=== PATIENT | female | born 1975 | race Caucasian/White ===

== ENCOUNTER 2016-06-20 09:35 | Emergency (ER) | payer OTHER ==
[2016-06-20 09:51] VITALS: BP 107/55
== END 2016-06-20 10:52 | disposition left against medical advice (07) ==
LOC: ED 09:35
DX: R50.9 Fever, unspecified (principal)

== ENCOUNTER 2017-04-11 10:18 | Emergency (ER) | payer OTHER ==
[2017-04-11 11:11] VITALS: BP 103/62
[2017-04-11 11:18] LABS: Hematocrit 41 % (35-47); Hemoglobin 13.6 g/dl (12.0-16.0); Mean Corpuscular HGB Conc 34 g/dl (31-36); Mean Corpuscular Hemoglobin 31 pg (27-31); Mean Corpuscular Volume 91 fL (80-97); Mean Platelet Volume 7 um3 (7.4-10.4); Red Blood Count 4.46 10^6/ul (4.0-5.4); Red Cell Distribution Width 13 % (10.5-15); White Blood Count 7.5 10^3/ul (3.5-10.8)
[2017-04-11 11:54] LABS: ALT 13 U/L (7-52); AST 20 U/L (13-39); Albumin 4.8 g/dL (3.2-5.2); Alkaline Phosphatase 29 U/L (34-104); Anion Gap 8 mmol/L (2-11); BUN/Creatinine Ratio 20.7 (8-20); Blood Urea Nitrogen 18 mg/dL (6-24); CO2 Carbon Dioxide 25 mmol/L (22-32); Calcium 10.6 mg/dL (8.6-10.3); Chloride 105 mmol/L (101-111); EGFR African American 92.3 (>60); EGFR Non-African American 71.8 (>60); Globulin 3.4 g/dL (2-4); Glucose 107 mg/dL (70-100); Magnesium 2.1 mg/dL (1.9-2.7); Potassium 3.9 mmol/L (3.5-5.0); Sodium 138 mmol/L (133-145); Total Protein 8.2 g/dL (6.4-8.9)
--- NOTE | 2017-04-11 12:06 | RAD ---
Indication: Chest pain. Single frontal view of the chest performed at 1112 hours was reviewed. Comparison is made with previous exam dated December 08, 2009. No mediastinal shift is noted. Heart is of normal size and configuration. Lung benavidez appear clear. IMPRESSION: NO ACTIVE CARDIOPULMONARY DISEASE IS NOTED.
--- NOTE | 2017-04-12 15:57 | ED ---
Sherry Basilio Alfonso, scribed for Brigida Frazier MD on 04/11/17 at 1118 . Shortness of Breath - HPI Summary HPI Summary: This patient is a 41 year old F presenting to [facility] accompanied by with a chief complaint of SOB which began at 0900 today. The patient rates the pain 0/10 in severity. Symptoms aggravated by standing or sitting. Symptoms alleviated by spontaneous resolution. Patient reports racing palpitations ( began at 0930 today), generalized weakness, and bilateral SI joint pain (since one year ago for which she got an injection yesterday). Patient denies CP. She reports being on a cleanse, so I havent been eating much. - History of Current Complaint Chief Complaint: EDShortnessOfBreath Time Seen by Provider: 04/11/17 11:14 Hx Obtained From: Patient Onset/Duration: Sudden Onset, Lasting Hours, Resolved Timing: Constant Aggrevating Factors: Other - standing or sitting. Alleviating Factors: Spontaneous Resolution - Allergy/Home Medications Allergies/Adverse Reactions: Allergies Allergy/AdvReac Type Severity Reaction Status Date / Time Prednisone AdvReac Muscle Ache Verified 04/11/17 10:21 PMH/Surg Hx/FS Hx/Imm Hx Endocrine/Hematology History: Denies: Hx Diabetes, Hx Thyroid Disease Cardiovascular History: Denies: Hx Hypercholesterolemia, Hx Hypertension, Hx Pacemaker/ICD, Hx Peripheral Vascular Disease Musculoskeletal History: Denies: Hx Arthritis, Hx Osteoporosis Sensory History: Denies: Hx Cataracts, Hx Contacts or Glasses, Hx Glaucoma, Hx Hearing Aid Opthamlomology History: Denies: Hx Cataracts, Hx Contacts or Glasses, Hx Glaucoma Neurological History: Denies: Hx Headaches, Hx Seizures, Hx Transient Ischemic Attacks (TIA) Psychiatric History: Reports: Hx Panic Disorder Denies: Hx Anxiety, Hx Depression Infectious Disease History: No Infectious Disease History: Denies: Traveled Outside the [place] in Last 30 Days - Family History Known Family History: Positive: Cardiac Disease - Mother and father, Hypertension - Mother, Diabetes - Mother, Other - Prostate cancer father. Skin cancer father. - Social History Lives: With Family - Alcohol Use: Weekly Alcohol Amount: 3-5 DRINKS Substance Use Type: Reports: None Smoking Status (MU): Never Smoked Tobacco Review of Systems Positive: Palpitations. Negative: Chest Pain Positive: Shortness Of Breath Positive: Other - bilateral SI joint pain (since one year ago for which she got an injection yesterday). Neurological: Other - generalized weakness All Other Systems Reviewed And Are Negative: Yes Physical Exam - Summary Physical Exam Summary: General: Well appearing, no pain distress Skin: Warm, Skin Color Reflects Adequate Perfusion, Dry Eyes: EOMI, SARAH ENT: Pharynx normal, TMs normal Neck: Supple, nontender Respiratory: CTA, breath sounds present, no rhonchi, no wheezes, no rales Cardiovascular: RRR, no murmur, no rub, no gallop Abdomen: Soft, nontender, Non-distended, no guarding, no rebound Bowel: Present Musculoskeletal: LUÍS, No edema Neuro: Sensory/motor intact, A&Ox3, CN intact 2-12 Psych: Affect/mood appropriate Triage Information Reviewed: Yes Vital Signs On Initial Exam: Initial Vitals Temp Pulse Resp BP Pulse Ox 99.0 F 110 16 108/81 99 04/11/17 10:21 04/11/17 10:21 04/11/17 10:21 04/11/17 10:21 04/11/17 10:21 Vital Signs Reviewed: Yes - Kristopher Coma Scale Coma Scale Total: 15 Diagnostics - Vital Signs Vital Signs Temp Pulse Resp BP Pulse Ox 04/11/17 11:00 80 20 99 04/11/17 10:57 85 15 100 04/11/17 10:55 103/62 04/11/17 10:53 81 20 04/11/17 10:21 99.0 F 110 16 108/81 99 - Laboratory Result Diagrams: 04/11/17 11:04 04/11/17 11:04 Lab Statement: Any lab studies that have been ordered have been reviewed, and results considered in the medical decision making process. - Radiology CXR Radiology Interpretation Completed By: Radiologist - NO ACTIVE CARDIOPULMONARY DISEASE IS NOTED. ED physician has reviewed this radiology report and agrees. - EKG 1033 Cardiac Rate: NL - 81 BPM EKG Rhythm: Sinus Rhythm EKG Comparison: No Significant Change - 04/17/12 Course/Dx - Diagnoses Provider Diagnoses: Palpitations Discharge - Discharge Plan Condition: Stable Disposition: HOME Patient Education Materials: Palpitations (ED) Referrals: Kehinde Cloud MD [Primary Care Provider] - 3 Days Additional Instructions: RETURN TO THE EMERGENCY DEPARTMENT FOR CHANGING OR WORSENING SYMPTOMS. The documentation as recorded by the Sherry woods Alfonso accurately reflects the service I personally performed and the decisions made by me, Brigida Frazier MD.
== END 2017-04-11 12:25 | disposition home or self-care (01) ==
LOC: ED 10:18
DX: R00.2 Palpitations (principal); R53.1 Weakness; M53.3 Sacrococcygeal disorders, not elsewhere classified; Z32.02 Encounter for pregnancy test, result negative; F41.0 Panic disorder [episodic paroxysmal anxiety]; Z88.8 Allergy status to other drugs, medicaments and biological substances
CPT/HCPCS: 36415; 71010; 80053; 83605; 83735; 84484; 84702; 85025; 87040; 93005; 99282

== ENCOUNTER 2017-12-24 14:27 | Emergency (ER) | payer OTHER ==
--- OUTSIDE RECORDS SUMMARY | 2017-12-24 14:34 | XMS REPORT ---
:1975 External Reference #:[id number] Author Organization [facility] Address [address] [place] [address] Phone [phone] Care Team Providers Name Role Phone Kehinde Cloud M.D. Care Team Information [employer] Window Tinter Unavailable Payers Type Date Identification Numbers Payment Provider Subscriber Health Maintenance Effective: Policy Number: [facility] Sabas Preciado [facility] ([facility]) 02/16/2010 [id number] Expires: 06/17/2012 Group Number: [id number] [address] PayID: [id number] [place] [address] Medigap Part B Effective: 06/18/2012 Policy Number: [id number] [employer] Sabas Preciado [address] Group Number: [id number] [address] PayID: [id number] [place] [address] Problems Date Description Provider Status Onset: 12/10/2011 Headache Kehinde Cloud M.D. Active Onset: 12/10/2011 Pure hypercholesterolemia Kehinde Cloud M.D. Active Family History Date Family Member(s) Problem(s) Comments Onset: (age 74 Father CAD CABG x 3 Years) : (age Father due to Cancer, 74 Years) Prostate Father Hypercholesterolemia Father Hypertension Father Diabetes Father Cancer, Skin Mother Hypertension Siblings 1 First Brother Non Contributory First Brother Obesity Paternal Grandfather due to CAD () - in his 56's. Heavy smoker Paternal Grandfather Alcoholism Paternal Grandmother Arthritis Paternal Grandmother due to Cancer () - near age 90. perhaps colon. abdominal. Paternal Grandmother Cancer, Cervical Maternal Grandfather Alcoholism Maternal Grandmother due to Suspected HI () - in her 70's. Maternal Grandmother Arthritis Social History Type Date Description Comments Marital Status Lives With Spouse Sabas Diet Healthy, Well Balanced gets plenty of calcium. Mostly vegetarian but lots of fish. 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 Cardio. Currently Active Patient is currently sexually active STD's No STD History Allergies, Adverse Reactions, Alerts Date Description Reaction Status Severity Comments 08/21/2014 NKDA active 03/27/2003 NKDA inactive Medications Medication Date Status Form Strength Qnty SIG Indications Ordering Provider Escitalopram 08/16 Active Tablets 20mg 30tab 1 by mouth F41.9 Kehinde s every day Ronal Cloud Clonazepam 10/02 Active Tablets 0.5mg 30tab 1 four s times a day Ai, as needed M.DLexie anxiety Quasense Active Tablets 0.15-0.03 Take 1 Unknown /0000 mg Tablet By Mouth Daily. Skip Placebo Pills To Prevent Periods Doxycycline 12/02 Hx Tablets 100mg 42tab 1 by mouth cl s twice a day Ai, - x 21 days M.D. 12/09 Proctozone-HC 09/21 Hx Cream 2.5% 30gm apply to w hemorrhoids Delaney Tinajero, - 3 - 4 times [employer]-C 11/07 daily if needed Bupropion HCL ER 09/13 Hx Tablets ER 100mg 30tab take 1 F41.9 Kehinde (SR) 12HR s tablet by Ai, - mouth qAM M.D. 11/07 Diazepam 09/13 Hx Gel 10mg 60dos apply 5mg es by way of Ai, - vagina M.D. 09/20 twice a day as needed (mucolox in versabase gel) Diazepam 08/16 Hx Tablets 5mg 60tab 1 by mouth F41.9 Kehinde s every night Ai, - at bedtime M.D. 09/20 Diazepam 06/29 Hx Vaginal Gel 60Dos apply 5mg Kehinde Compound es by way of Ai, - vagina M.D. 09/17 twice a day as needed (mucolox in versabase gel) Nortriptyline 05/16 Hx Capsules 25mg Ai, - M.D. 08/16 Neurontin 05/02 Hx Capsules 300mg 90cap 1 by mouth M54.5 s every night Ai, - at bedtime, M.D. 09/12 increase to bid after 2 days, and may increase to tid in 3 days. Escitalopram 04/19 Hx Tablets 10mg 30tab 1 by mouth F41.9 s every day Ai, - M.D. 08/16 Duloxetine HCL 03/[address] 30mg 60cap take one F41. Part s capsule by Ai, - mouth every M.D. 04/18 day for week then increase to 2 po qd Prednisone 01/16 Hx Tablets 50mg Ai, - M.D. 02/13 Celexa 11/28 Hx Tablets 20mg 90tab 2 po qd F41.9 s Ai, - M.D. 04/19 Celexa 11/16 Hx Tablets 20mg 60tab Take 1 And F41.9 s 1/2 Tablet Ai, - To 2 M.D. 11/28 Tablets By Mouth Every Day as Directed Duloxetine HCL 10/[address] 30mg 60cap take one F41. Part s capsule by Ai, - mouth every M.D. 10/16 day for week then increase to 2 po qd Lidoderm 08/31 Hx Patches 5% 30uni apply 1 M54.5 ts patches to Ai, - affected M.D. 10/16 area for hours a day Neurontin 08/02 Hx Capsules 100mg 30cap 1 by mouth s three times Ai, - a day as M.D. 08/30 Cyclobenzaprine 05/16 Hx Tablets 5mg 30tab take 1 to 2 M54.9 s tablets by Cloud, - mouth up to M.D. 06/01 three times a day as needed for muscle spasm - may cause drowsiness Naproxen 05/16 Hx Tablets 250mg 30tab 1-2 q12hrs M54.9 s prn Ai, - M.D. 06/21 Benzonatate 04/17 Hx Capsules 100mg 45cap take 1 or 2 s capsules by Rashi, - mouth three [employer] 06/01 times a day as needed for coughing Indomethacin 03/28 Hx Capsules 25mg 30cap 1-2 by s mouth three Cloud, - times a M.D. 09/12 day, take with food Hydroxyzine HCL 02/14 Hx Tablets 10mg 45tab 1 -3 tablet s by mouth 4 Cloud, - times a day M.D. 03/27 as needed for anxiety Macrobid 07/22 Hx Capsules 100mg 30cap 1 po q12hrs s x 2 doses Ai, - after M.D. 12/29 intercourse Vesicare 07/08 Hx Tablets 10mg 30tab 1 po qd s Ai, - M.D. 12/29 Indomethacin 04/30 Hx Capsules 25mg Four Times Daily - 12/29 Naprosyn 02/08 Hx Tablets 500mg 60tab take one s tablet by Delaney Tinajero, - mouth twice [employer] 12/29 a day pain and inflamation Diazepam 08/21 Hx Tablets 2mg 30tab 1/2-2 by F41.9 s mouth every Cloud, - 6 hours as M.D. 12/29 needed Vitamin D3 08/09 Hx Capsules 1000Unit 1 by mouth every day P. - Blegen, 06/01 M.D. Vesicare 08/05 Hx Tablets 5mg 1 PO qd P. - Blegen, 02/08 M.D. Detrol LA 07/07 Hx Caps ER 4mg 7caps 1 po qd 24HR Ai, - M.D. 07/20 Macrobid 07/05 Hx Capsules 100mg 12cap 1 by mouth s twice a day Ai, - x 6 days M.D. 08/05 Cipro 07/04 Hx Tablets 250mg 6tabs one twice a day x 3 Cloud, - days M.D. 08/05 Cipro 06/28 Hx Tablets 500mg 10tab one by s mouth twice P. - a day for 5 Blegen, 07/08 days for M.D. uti Celexa 01/28 Hx Tablets 20mg 60tab 1.5-2 by F41.9 s mouth every Cloud, - day as M.D. 10/24 Cipro 01/14 Hx Tablets 250mg 10tab 1 pill by Lucius s mouth twice RLexie Tinajero, - a day for 5 [employer] 01/19 days urine infection Doxycycline 01/10 Hx Capsules 100mg 14cap 1 po bid Michelwnti Monohydrate s for 7 days Delaney Tinajero, - for bladder [employer] 01/14 infection Citalopram 06/25 Hx Tablets 20mg 30tab 1 po qd 300.00 Kehinde Hydrobromide s Ai, - M.D. 01/28 Excuse For Work 04/23 Hx 1ameena Putnam needs s to be out Ai, - of work M.D. 04/30 through 04/30/12 07/05 Hx Tablets 0.8mg 30tab 1 po qd s Ai, - M.D. 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 08/23 headache- may repeat after 2 hours Citalopram 10/04 Hx Tablets 20mg 30tab Take One 300.00 Hydrobromid s Tablet By Ai, - Mouth One M.D. 03/14 Time Clindamycin 02/25 Hx Gel 1% 30gm apply to affected Ai, - area bid M.D. 05/26 Azithromycin 11/17 Hx Tablets 250mg 6tabs 2 po qd day 786.2 1, then 1 Irene Cloud po qd days M.D. 02/15 2- Tylenol With 11/10 Hx Tablets 300-30mg 4tabs i to tabs 786.2 Nolvia Codeine # po qhs prn P. - cough Blegen, 03/14.D. Nasonex 11/10 Hx Suspension 50mcg/Act 1unit one spray 995.3 s each P. - nostril bid Blegen, 08/23 M.D. Celexa 07/14 Hx Tablets 20mg 30tab 1 po qd 300.00 s Irene Cloud M.DLexie 08/23 Ortho Evra 07/14 Hx Patches 150-20mcg 9unit Apply 1 Weekly /24HR s patch Irene Cloud topically M.D. 03/14 on the day every week for 3 weeks, off 1week then repeat Ortho Evra 07/14 Hx Patches 150-20mcg 1unit emergency Weekly /24HR s patch Irene Cloud M.DLexie 03/14 Diflucan 11/30 Hx Tablets 150mg 1tabs 1 po x 1 Tawanna Irene Garcia M.D., 12/02 R.DLexie Ocella 10/07 Hx Tablets 3-0.03mg 28tab Take 1 s Tablet Irene Cloud Every Day M.D. 08/23 Physical Therapy 08/27 Hx Evaluate and treat Irene Cloud M.DLexie 11/25 tendonitis Cele 28 10/02 Hx Tablets 3-0.03mg 30tab 1 PO qd s Irene Cloud.DLexie 03/14 Bactrim DS 12/11 Hx Tablets 160mg;800 10tab one po bid Carolina /2006 mg s for 5 days A. - Yevgeniy, 03/14 [facility].N.P.[facility] Cipro 06/08 Hx Tablets 250mg 6tabs One bid X 3 Days Irene Cloud M.D. 09/06 Penicillin VK 09/28 Hx Tablets 500mg 20tab One bid X10 462 s Days Irene Cloud M.D. 12/27 Excuse From Work 09/28 Hx [place] needs to be out Ai - of work M.DLexie 10/0309/29/04 Cele 28 Day 09/08 Hx Tablets 0.03mg;3 3Pack 1 qd mg s Irene Cloud M.D. 10/02 Penicillin VK 07/18 Hx Tablets 500mg 20tab one bid x10 s days Irene Cloud M.D. 09/08 Penicillin VK 05/26 Hx Tablets 500mg 20tab one po bid 462 Carolina s for 10 days ALexie Vuong, 07/07 [facility] Ortho Tri-Cyclen 03/16 Hx Pack(S) 1pack 1 qd Kehinde Irene Cloud M.D. 09/08 Cipro 10/16 Hx Tablets 250mg 14tab one bid x 7 s days Irene Cloud M.D. 11/15 Pyridium 10/16 Hx Tablets 100mg 20tab 1-2 tid prn s Irene Cloud M.D. 11/15 Flagyl 07/17 Hx Tablets 500mg 14tab one po bid s for 7 days Irene Cloud M.D. 05/26 Diflucan 04/27 Hx Tablets 150mg 1tabs 1 tablet once prn Luis Florence 06/03 Ronal Robitussin A-C 04/23 Hx Syrup 4Oz 1-2 TSP Q4H prn Irene Cloud M.D. 06/03 Keflex 03/27 Hx 500mg 14uni one po bid ts for 7 days Aurelio Vuong, 06/03 [facility] Clonazepam 00 Hx 0.5mg 60uni one gtab po Carolina ts bid prn Aurelio Vuong, 09/08 F.N.P.C. /2004 Celexa 00 Hx Tabs 40mg 30tab Take One 300.00 Kehinde /0000 s Tablet By Ai, - Mouth One M.D. 07/14 Time Daily /2009 Myrbetriq Hx Tablets ER 50mg Take 1 Unknown /0000 24HR Tablet By - Mouth Every Norethindrone Hx Tablets 5mg Take 1 Unknown Acetate /0000 Tablet By - Mouth Every Hydroxyzine HCL Hx Tablets 1 -3 tablet Unknown /0000 by mouth 4 - times a day 11/07 as needed for anxiety Medications Administered in Office Medication Date Status Form Strength Qnty SIG Indications Ordering Provider Injection, Administered Injection Kehinde Cloud Depo-Medrol 20 009 M.D. MG Immunizations CPT Code Status Date Vaccine Lot # [id number] Given 05/16/2017 Hepatitis A, Adult [id number] Given 04/19/2017 Influenza Virus Vaccine, Quadrivalent, 3 Yr > [id number] Quad, Preserv Free 15553 Given 03/28/2016 MMR (Measles,Mumps,Rubella) [id number] 59199 Given 03/28/2016 Influenza Virus Vaccine, Quadrivalent, 3 Yr > [id number] Quad, Preserv Free 10157 Given 03/28/2016 Hepatitis A, Adult [id number] 70040 Given 04/14/2015 Influenza Virus Vaccine, Quadrivalent, 3 Yr > [id number] Quad, Preserv Free 45948 Given 09/14/2011 Tdap (Adacel) [id number] Vital Signs Date Vital Result Comment 12/10/2017 Weight 139.00 lb Weight in kg's 63.050 BP Systolic 104 mmHg BP Diastolic 68 mmHg Heart Rate 82 /min Body Temperature 99.1 F 11/07/2017 Weight 135.00 lb Weight in kg's 61.236 BP Systolic 102 mmHg BP Diastolic 60 mmHg Heart Rate 72 /min Body Temperature 99.3 F Respiratory Rate 16 /min O2 % BldC Oximetry 98 % 10/16/2017 Weight 130.00 lb Weight in kg's 58.968 BP Systolic 102 mmHg BP Diastolic 60 mmHg Heart Rate 72 /min Body Temperature 99.5 F Respiratory Rate 16 /min 09/13/2017 Weight 129.00 lb Weight in kg's 58.514 BP Systolic 102 mmHg BP Diastolic 58 mmHg Heart Rate 80 /min Body Temperature 100.2 F Respiratory Rate 16 /min O2 % BldC Oximetry 98 % 08/16/2017 Weight 133.00 lb Weight in kg's 60.329 BP Systolic 92 mmHg BP Diastolic 60 mmHg Heart Rate 76 /min Body Temperature 99.4 F Respiratory Rate 16 /min 06/28/2017 Weight 135.00 lb Weight in kg's 61.236 BP Systolic 108 mmHg BP Diastolic 60 mmHg Heart Rate 70 /min Body Temperature 98.1 F Respiratory Rate 16 /min O2 % BldC Oximetry 98 % 05/16/2017 BP Systolic 100 mmHg BP Diastolic 60 mmHg Heart Rate 70 /min Body Temperature 97.3 F O2 % BldC Oximetry 98 % 04/19/2017 Weight 131.00 lb Weight in kg's 59.422 BP Systolic 100 mmHg BP Diastolic 62 mmHg Heart Rate 72 /min Body Temperature 98.6 F 03/30/2017 Weight 134.00 lb Weight in kg's 60.782 BP Systolic 110 mmHg BP Diastolic 75 mmHg Heart Rate 72 /min 02/13/2017 Weight 136.00 lb Weight in kg's 61.690 BP Systolic 94 mmHg BP Diastolic 60 mmHg Heart Rate 78 /min Body Temperature 99.3 F Respiratory Rate 16 /min O2 % BldC Oximetry 98 % 12/28/2016 Weight 135.00 lb Weight in kg's 61.236 BP Systolic 104 mmHg BP Diastolic 66 mmHg Heart Rate 68 /min Body Temperature 99.2 F Respiratory Rate 14 /min Height 63 inches 5'3" BMI (Body Mass Index) 23.9 kg/m2 11/28/2016 Weight 138.00 lb Weight in kg's 62.597 BP Systolic 110 mmHg BP Diastolic 60 mmHg Heart Rate 84 /min Body Temperature 99.5 F Respiratory Rate 16 /min 11/16/2016 Weight 137.00 lb Weight in kg's 62.143 BP Systolic 100 mmHg BP Diastolic 62 mmHg Heart Rate 72 /min Body Temperature 98.7 F Respiratory Rate 16 /min 10/24/2016 Weight 135.00 lb Weight in kg's 61.236 BP Systolic 106 mmHg BP Diastolic 62 mmHg Heart Rate 83 /min Body Temperature 98.7 F Respiratory Rate 14 /min O2 % BldC Oximetry 98 % 10/09/2016 Weight 139.00 lb Weight in kg's 63.050 BP Systolic 100 mmHg BP Diastolic 60 mmHg Heart Rate 84 /min 08/31/2016 Weight 134.00 lb Weight in kg's 60.782 BP Systolic 108 mmHg BP Diastolic 62 mmHg Heart Rate 96 /min 08/02/2016 Weight 134.00 lb Weight in kg's 60.782 BP Systolic 100 mmHg BP Diastolic 67 mmHg Heart Rate 80 /min 07/11/2016 Weight 137.00 lb Weight in kg's 62.143 BP Systolic 94 mmHg BP Diastolic 62 mmHg Heart Rate 88 /min Body Temperature 98.9 F O2 % BldC Oximetry 98 % 06/21/2016 Weight 139.00 lb Weight in kg's 63.050 BP Systolic 102 mmHg BP Diastolic 56 mmHg Heart Rate 75 /min Body Temperature 98.8 F Respiratory Rate 17 /min O2 % BldC Oximetry 99 % 06/01/2016 Weight 135.00 lb Weight in kg's 61.236 BP Systolic 98 mmHg BP Diastolic 60 mmHg Heart Rate 79 /min Body Temperature 97.9 F Respiratory Rate 16 /min O2 % BldC Oximetry 98 % 05/16/2016 Weight 137.00 lb Weight in kg's 62.143 BP Systolic 90 mmHg BP Diastolic 60 mmHg Heart Rate 68 /min Body Temperature 98.1 F Respiratory Rate 12 /min 05/08/2016 Weight 134.00 lb Weight in kg's 60.782 BP Systolic 98 mmHg BP Diastolic 60 mmHg Heart Rate 68 /min Body Temperature 99.0 F Respiratory Rate 12 /min 04/17/2016 Weight 136.00 lb Weight in kg's 61.690 BP Systolic 100 mmHg BP Diastolic 65 mmHg Heart Rate 72 /min Body Temperature 98.6 F O2 % BldC Oximetry 99 % 03/28/2016 Weight 135.00 lb Weight in kg's 61.236 BP Systolic 90 mmHg BP Diastolic 60 mmHg Heart Rate 68 /min Body Temperature 98.6 F Respiratory Rate 12 /min 02/03/2016 Weight 132.00 lb Weight in kg's 59.875 BP Systolic 90 mmHg BP Diastolic 58 mmHg Heart Rate 68 /min Body Temperature 98.2 F Respiratory Rate 16 /min 12/30/2015 Weight 129.00 lb Weight in kg's 58.514 BP Systolic 96 mmHg BP Diastolic 60 mmHg Heart Rate 76 /min Height 63.25 inches 5'3.25" BMI (Body Mass Index) 22.7 kg/m2 Last Menstrual Period [id number] 07/22/2015 Weight 128.00 lb Weight in kg's 58.061 BP Systolic 90 mmHg BP Diastolic 60 mmHg Heart Rate 60 /min 07/08/2015 Weight 129.00 lb Weight in kg's 58.514 BP Systolic 90 mmHg BP Diastolic 50 mmHg Heart Rate 76 /min 07/05/2015 Weight 123.00 lb Weight in kg's 55.793 BP Systolic 11 mmHg BP Diastolic 59 mmHg Heart Rate 80 /min 05/04/2015 Weight 125.00 lb Weight in kg's 56.700 BP Systolic 96 mmHg BP Diastolic 64 mmHg Heart Rate 72 /min 02/08/2015 Weight 123.00 lb Weight in kg's 55.793 BP Systolic 90 mmHg BP Diastolic 60 mmHg Heart Rate 56 /min 09/04/2014 Weight 120.00 lb Weight in kg's 54.432 BP Systolic 90 mmHg BP Diastolic 52 mmHg Heart Rate 68 /min 08/21/2014 Weight 117.00 lb Weight in kg's 53.071 BP Systolic 110 mmHg BP Diastolic 62 mmHg Heart Rate 80 /min 08/05/2014 Weight 119.00 lb Weight in kg's 53.978 BP Systolic 110 mmHg BP Diastolic 64 mmHg Heart Rate 88 /min Body Temperature 99.7 F 07/21/2014 Weight 126.00 lb Weight in kg's 57.154 BP Systolic 100 mmHg BP Diastolic 50 mmHg Heart Rate 72 /min 07/13/2014 Weight 123.00 lb Weight in kg's 55.793 BP Systolic 115 mmHg BP Diastolic 68 mmHg Heart Rate 80 /min Body Temperature 99.2 F 07/07/2014 Weight 123.00 lb Weight in kg's 55.793 BP Systolic 110 mmHg BP Diastolic 62 mmHg Heart Rate 92 /min Body Temperature 99.5 F 07/06/2014 Weight 125.00 lb Weight in kg's 56.700 BP Systolic 116 mmHg BP Diastolic 74 mmHg Heart Rate 76 /min Body Temperature 99.7 F 07/02/2014 Weight 128.00 lb Weight in kg's 58.061 BP Systolic 102 mmHg BP Diastolic 50 mmHg Heart Rate 76 /min 06/02/2014 Weight 127.00 lb Weight in kg's 57.607 BP Systolic 100 mmHg BP Diastolic 52 mmHg Heart Rate 80 /min 05/19/2014 Weight 128.00 lb Weight in kg's 58.061 BP Systolic 78 mmHg BP Diastolic 50 mmHg Heart Rate 80 /min Body Temperature 98.4 F 04/21/2014 Weight 126.00 lb Weight in kg's 57.154 BP Systolic 106 mmHg BP Diastolic 54 mmHg Heart Rate 76 /min 01/08/2014 Weight 123.00 lb Weight in kg's 55.793 BP Systolic 120 mmHg BP Diastolic 60 mmHg Heart Rate 76 /min Body Temperature 99.3 F Last Menstrual Period [id number] 10/23/2012 Weight 123.00 lb Weight in kg's 55.793 BP Systolic 84 mmHg BP Diastolic 54 mmHg Heart Rate 68 /min Height 64 inches 5'4" BMI (Body Mass Index) 21.1 kg/m2 08/27/2012 Weight 125.00 lb Weight in kg's 56.700 BP Systolic 108 mmHg BP Diastolic 60 mmHg Heart Rate 76 /min Body Temperature 99.1 F Height 64 inches 5'4" BMI (Body Mass Index) 21.5 kg/m2 07/18/2012 Weight 127.00 lb Weight in kg's 57.607 BP Systolic 99 mmHg BP Diastolic 58 mmHg Heart Rate 82 /min 06/25/2012 Weight 125.00 lb Weight in kg's 56.700 BP Systolic 120 mmHg BP Diastolic 72 mmHg Heart Rate 86 /min Body Temperature 98.7 F O2 % BldC Oximetry 98 % 04/30/2012 Weight 131.00 lb Weight in kg's 59.422 BP Systolic 94 mmHg BP Diastolic 58 mmHg Heart Rate 84 /min 04/23/2012 Weight 129.00 lb Weight in kg's 58.514 BP Systolic 100 mmHg BP Diastolic 70 mmHg Heart Rate 90 /min 01/30/2012 Weight 130.00 lb Weight in kg's 58.968 BP Systolic 120 mmHg BP Diastolic 62 mmHg Heart Rate 88 /min 12/12/2011 Weight 132.00 lb Weight in kg's 59.875 BP Systolic 100 mmHg BP Diastolic 62 mmHg Heart Rate 76 /min Body Temperature 99.0 F 09/14/2011 Weight 137.00 lb Weight in kg's 62.143 BP Systolic 100 mmHg BP Diastolic 64 mmHg Heart Rate 68 /min Body Temperature 98.9 F 07/05/2011 Weight 135.00 lb Weight in kg's 61.236 BP Systolic 100 mmHg BP Diastolic 70 mmHg Heart Rate 68 /min 03/15/2011 Weight 134.00 lb Weight in kg's 60.782 BP Systolic 90 mmHg BP Diastolic 50 mmHg Heart Rate 72 /min Body Temperature 98.7 F 02/25/2010 Weight 135.00 lb Weight in kg's 61.236 BP Systolic 110 mmHg BP Diastolic 70 mmHg Heart Rate 84 /min 01/28/2010 Weight 133.00 lb Weight in kg's 60.329 BP Systolic 100 mmHg BP Diastolic 60 mmHg Heart Rate 72 /min Body Temperature 99.5 F 11/17/2009 Weight 130.00 lb Weight in kg's 58.968 BP Systolic 98 mmHg BP Diastolic 70 mmHg Heart Rate 76 /min Body Temperature 99.1 F O2 % BldC Oximetry 98 % AT Room Air 11/10/2009 Weight 131.00 lb Weight in kg's 59.422 BP Systolic 94 mmHg BP Diastolic 68 mmHg Heart Rate 72 /min Body Temperature 98.9 F O2 % BldC Oximetry 99 % AT Room Air 07/14/2009 Weight 136.00 lb Weight in kg's 61.690 BP Systolic 118 mmHg BP Diastolic 64 mmHg 05/05/2009 Weight 136.00 lb Weight in kg's 61.690 BP Systolic 100 mmHg BP Diastolic 60 mmHg Heart Rate 80 /min 01/22/2009 Weight 136.00 lb Weight in kg's 61.690 BP Systolic 110 mmHg BP Diastolic 60 mmHg Heart Rate 76 /min 11/30/2008 Weight 135.00 lb Weight in kg's 61.236 BP Systolic 100 mmHg BP Diastolic 60 mmHg Heart Rate 64 /min Body Temperature 97.4 F 09/24/2008 Weight 134.00 lb Weight in kg's 60.782 BP Systolic 102 mmHg BP Diastolic 68 mmHg Body Temperature 98.8 F 10/03/2007 Weight 131.00 lb Weight in kg's 59.422 BP Systolic 100 mmHg BP Diastolic 60 mmHg Heart Rate 68 /min Height 63 inches 5'3" BMI (Body Mass Index) 23.2 kg/m2 07/16/2007 Weight 127.00 lb Weight in kg's 57.607 BP Systolic 90 mmHg BP Diastolic 56 mmHg Heart Rate 70 /min Height 63 inches 5'3" BMI (Body Mass Index) 22.5 kg/m2 Last Menstrual Period [id number] 03/28/2006 Weight 132.00 lb Weight in kg's 59.875 BP Systolic 100 mmHg BP Diastolic 52 mmHg Heart Rate 68 /min Height 63 inches 5'3" BMI (Body Mass Index) 23.4 kg/m2 Last Menstrual Period [id number] 12/11/2005 Weight 129.50 lb Weight in kg's 58.741 BP Systolic 120 mmHg BP Diastolic 70 mmHg Height 63 inches 5'3" BMI (Body Mass Index) 22.9 kg/m2 02/28/2005 Weight 135.00 lb Weight in kg's 61.236 BP Systolic 98 mmHg BP Diastolic 60 mmHg Body Temperature 97.5 F Height 63 inches 5'3" BMI (Body Mass Index) 23.9 kg/m2 02/14/2005 Weight 136.00 lb Weight in kg's 61.690 BP Systolic 98 mmHg BP Diastolic 60 mmHg Body Temperature 99.8 F Height 63 inches 5'3" BMI (Body Mass Index) 24.1 kg/m2 11/10/2004 Weight 140.00 lb Weight in kg's 63.504 BP Systolic 120 mmHg BP Diastolic 80 mmHg Heart Rate 80 /min Height 63 inches 5'3" BMI (Body Mass Index) 24.8 kg/m2 09/28/2004 Weight 138.00 lb Weight in kg's 62.597 BP Systolic 120 mmHg BP Diastolic 80 mmHg Body Temperature 98.8 F Height 63 inches 5'3" BMI (Body Mass Index) 24.4 kg/m2 09/08/2004 Weight 138.00 lb Weight in kg's 62.597 BP Systolic 130 mmHg BP Diastolic 60 mmHg Heart Rate 76 /min Respiratory Rate 18 /min Height 63 inches 5'3" BMI (Body Mass Index) 24.4 kg/m2 Last Menstrual Period [id number] 07/07/2004 Weight 137.00 lb Weight in kg's 62.143 BP Systolic 100 mmHg BP Diastolic 60 mmHg Body Temperature 98.7 F 05/26/2004 Weight 137.00 lb Weight in kg's 62.143 BP Systolic 116 mmHg BP Diastolic 68 mmHg Heart Rate 84 /min 04/06/2004 Weight 137.00 lb Weight in kg's 62.143 BP Systolic 110 mmHg BP Diastolic 60 mmHg 03/16/2004 Weight 138.00 lb Weight in kg's 62.597 BP Systolic 102 mmHg BP Diastolic 58 mmHg Heart Rate 81 /min 10/21/2003 Weight 130.00 lb Weight in kg's 58.968 BP Systolic 100 mmHg BP Diastolic 60 mmHg Body Temperature 97.5 F 07/23/2003 Weight 130.00 lb Weight in kg's 58.968 BP Systolic 92 mmHg BP Diastolic 54 mmHg 06/03/2003 Weight 132.00 lb Weight in kg's 59.875 BP Systolic 100 mmHg BP Diastolic 60 mmHg Body Temperature 99.4 F 04/23/2003 Weight 129.00 lb Weight in kg's 58.514 BP Systolic 98 mmHg BP Diastolic 62 mmHg Body Temperature 98.0 F 03/27/2003 Weight 126.00 lb Weight in kg's 57.154 BP Systolic 90 mmHg BP Diastolic 60 mmHg Heart Rate 58 /min Body Temperature 97.0 F Respiratory Rate 16 /min Height 63.50 inches BMI (Body Mass Index) 22.0 kg/m2 Results Test Date Test Result H/L Range Note Laboratory test finding 12/10/2017 Ferritin 7.3 ng/mL Low 11-307 1 CBC Auto Diff 12/10/2017 White Blood Count 5.5 10^3/uL 3.5-10.8 Red Blood Count 4.25 10^6/uL 4.00-5.40 Hemoglobin 13.5 g/dL 12.0-16.0 Hematocrit 39 % 35-47 Mean Corpuscular Volume 91 fL 80-97 Mean Corpuscular Hemoglobin 32 pg High 27-31 Mean Corpuscular HGB Conc 35 g/dL 31-36 Red Cell Distribution Width 15 % 10.5-15 Platelet Count 315 10^3/uL 150-450 Mean Platelet Volume 6.8 um3 Low 7.4-10.4 Abs Neutrophils 3.0 10^3/uL 1.5-7.7 Abs Lymphocytes 1.5 10^3/uL 1.0-4.8 Abs Monocytes 0.5 10^3/uL 0-0.8 Abs Eosinophils 0.5 10^3/uL 0-0.6 Abs Basophils 0.1 10^3/uL 0-0.2 Abs Nucleated RBC 0 10^3/uL Granulocyte % 54.7 % 38-83 Lymphocyte % 26.6 % 25-47 Monocyte % 8.5 % High 0-7 Eosinophil % 9.1 % High 0-6 Basophil % 1.1 % 0-2 Nucleated Red Blood Cells % 0 Comp Metabolic Panel 12/10/2017 Sodium 139 mmol/L 135-145 Potassium 4.4 mmol/L 3.5-5.0 Chloride 103 mmol/L 101-111 Co2 Carbon Dioxide 29 mmol/L 22-32 Anion Gap 7 mmol/L 2-11 Glucose 91 mg/dL 70-100 Blood Urea Nitrogen 18 mg/dL 6-24 Creatinine 0.79 mg/dL 0.51-0.95 BUN/Creatinine Ratio 22.8 High 8-20 Calcium 9.5 mg/dL 8.6-10.3 Total Protein 7.3 g/dL 6.4-8.9 Albumin 4.1 g/dL 3.2-5.2 Globulin 3.2 g/dL 2-4 Albumin/Globulin Ratio 1.3 1-3 Total Bilirubin 0.20 mg/dL 0.2-1.0 Alkaline Phosphatase 20 U/L Low 34-104 Alt 17 U/L 7-52 Ast 19 U/L 13-39 Egfr Non- 79.8 >60 Egfr 96.6 >60 2 Laboratory test finding 12/10/2017 TSH (Thyroid Stim Horm) 3.35 mcIU/mL 0.34-5.60 3 Vitamin B12 246 pg/mL 180-914 4 Vitamin D Total 25(Oh) 35.7 ng/mL 20-50 5 Magnesium 2.1 mg/dL 1.9-2.7 6 Urine DIP 06/28/2017 Leukocytes neg Neg Urine Nitrites neg Neg Urobilinogen norm Norm Total Protein, Urine neg Neg Urine pH 8 High 5-6 Urine Blood neg Neg Specific Martin 1.015 1.01-1.02 Urine Ketones neg Neg Urine Bilirubin neg Neg Urine Glucose norm Norm Laboratory test finding 04/11/2017 Blood Culture SEE RESULT BELOW 7 Laboratory test finding 02/13/2017 TSH (Thyroid Stim 1.57 mcIU/mL 0.34- 5.60 8 Horm) Creatine Kinase(CK) 67 U/L 10-223 9 Erythrocyte Sed Rate 21 mm/Hr High 0-14 10 C Reactive Protein 6.21 mg/L High < 5.00 11 CBC Auto Diff 02/13/2017 White Blood Count 5.9 10^3/uL 3.5-10.8 Red Blood Count 3.88 10^6/uL Low 4.0-5.4 Hemoglobin 12.1 g/dL 12.0-16.0 Hematocrit 36 % 35-47 Mean Corpuscular Volume 93 fL 80-97 Mean Corpuscular Hemoglobin 31 pg 27-31 Mean Corpuscular HGB Conc 33 g/dL 31-36 Red Cell Distribution Width 13 % 10.5-15 Platelet Count 274 10^3/uL 150-450 Mean Platelet Volume 7 um3 Low 7.4-10.4 Abs Neutrophils 3.7 10^3/uL 1.5-7.7 Abs Lymphocytes 1.4 10^3/uL 1.0-4.8 Abs Monocytes 0.4 10^3/uL 0-0.8 Abs Eosinophils 0.3 10^3/uL 0-0.6 Abs Basophils 0.1 10^3/uL 0-0.2 Abs Nucleated RBC 0.01 10^3/uL Granulocyte % 62.9 % 38-83 Lymphocyte % 23.5 % Low 25-47 Monocyte % 7.5 % 1-9 Eosinophil % 5.0 % 0-6 Basophil % 1.1 % 0-2 Nucleated Red Blood Cells % 0.1 Laboratory test finding 07/28/2016 Urine Culture SEE RESULT BELOW 12 Basic Metabolic Panel 07/11/2016 Sodium 139 mmol/L 133-145 Potassium 4.3 mmol/L 3.5-5.0 Chloride 104 mmol/L 101-111 Co2 Carbon Dioxide 31 mmol/L 22-32 Anion Gap 4 mmol/L 2-11 Glucose 95 mg/dL 70-100 Blood Urea Nitrogen 20 mg/dL 6-24 Creatinine 0.79 mg/dL 0.51-0.95 BUN/Creatinine Ratio 25.3 High 8-20 Calcium 9.7 mg/dL 8.6-10.3 Egfr Non- 80.2 >60 Egfr 103.1 >60 13 Laboratory test finding 07/11/2016 Lyme Disease Serology Negative Negative 14 Erythrocyte Sed Rate 16 mm/Hr High 0-14 15 C Reactive Protein 1.61 mg/L < 5.00 16 Rheumatoid Factor <15 IU/mL <15 17 Laboratory test finding 02/20/2016 HCG < 0.60 mIU/mL 18, 19 Lipid Profile (Trig/Chol/HDL) 01/03/2016 Triglycerides 135 mg/dL 20, 21 Cholesterol 185 mg/dL 20, 22 HDL Cholesterol 58.6 mg/dL 20, 23 LDL Cholesterol 99 mg/dL 20, 24 Laboratory test finding 07/05/2015 Cytology SEE RESULT BELOW 25 HPV Rna Ww/Reflex Genotype Negative Negative 26 Urine Culture And 08/21/2014 Urine Culture (SEE NOTE) 27 Sensitivities Urine DIP 08/21/2014 Specific Martin 1.020 1.01-1.02 Urine pH 5 5-6 Leukocytes TRACE Neg Urine Nitrites NEG Neg Total Protein, Urine NEG Neg Urine Glucose NORM Norm Urine Ketones ++ Neg Urobilinogen NORM Norm Urine Bilirubin + Neg Urine Blood TRACE Neg CBC No Diff 08/05/2014 White Blood Count 6.3 10^3/uL 4.8-10.8 Red Blood Count 4.08 10^6/uL 4.0-5.4 Hemoglobin 13.0 g/dL 12.0-16.0 Hematocrit 38 % 35-47 Mean Corpuscular Volume 94 fL 80-97 Mean Corpuscular Hemoglobin 32 pg High 27-31 Mean Corpuscular HGB Conc 34 g/dL 31-36 Red Cell Distribution Width 12 % 10.5-15 Platelet Count 271 10^3/uL 150-450 Mean Platelet Volume 8 um3 7.4-10.4 Comp Metabolic Panel 08/05/2014 Sodium 138 mmol/L 133-145 Potassium 3.9 mmol/L 3.5-5.0 Chloride 104 mmol/L 101-111 Co2 Carbon Dioxide 26 mmol/L 22-32 Anion Gap 8 mmol/L 2-11 Glucose 101 mg/dL High 70-100 Blood Urea Nitrogen 14 mg/dL 6-24 Creatinine 0.77 mg/dL 0.51-0.95 BUN/Creatinine Ratio 18.2 8-20 Calcium 9.6 mg/dL 8.6-10.3 Total Protein 7.1 g/dL 6.4-8.9 Albumin 4.4 g/dL 3.2-5.2 Globulin 2.7 g/dL 2-4 Albumin/Globulin Ratio 1.6 1-3 Total Bilirubin 0.40 mg/dL 0.2-1.0 Alkaline Phosphatase 22 U/L Low 34-104 Alt 11 U/L 7-52 Ast 15 U/L 13-39 Egfr Non- 83.5 >60 Egfr 107.3 >60 28 Laboratory test finding 08/05/2014 TSH (Thyroid Stimulating 1.92 IU/mL 0.34-5.60 Horm) Free T4 1.22 ng/mL High 0.61-1.12 Vitamin B12 532 pg/mL 180-914 29 Vitamin D, 25 Hydroxy 08/05/2014 25-Hydroxy Vitamin D2 <4.0 ng/mL 25-Hydroxy Vitamin D3 31 ng/mL 25-Hydroxy Vitamin D Total 31 ng/mL 30 Urine Culture And 07/13/2014 Urine Culture (SEE NOTE) 31 Sensitivities Urine DIP 07/13/2014 Specific Martin 1.025 High 1.01-1.02 Urine pH 5 5-6 Leukocytes NEG Neg Urine Nitrites POS Neg Total Protein, Urine NEG Neg Urine Glucose NEG Norm Urine Ketones + Neg Urobilinogen NEG Norm Urine Bilirubin NEG Neg Urine Blood TRACE (MENSES) Neg Urine DIP 07/06/2014 Specific Martin 1.000 Low 1.01-1.02 Urine pH 5 5-6 Leukocytes TRACE Neg Urine Nitrites NEG Neg Total Protein, Urine NEG Neg Urine Glucose NORM Norm Urine Ketones NEG Neg Urobilinogen NORM Norm Urine Bilirubin NEG Neg Urine Blood NEG Neg Urine Culture And 07/05/2014 Urine Culture (SEE NOTE) 32 Sensitivities Laboratory test finding 07/02/2014 Gardnerella/Yeast: (SEE NOTE) 33 Vaginal Dna Urine Culture And 07/02/2014 Urine Culture (SEE NOTE) 34 Sensitivities Urine DIP 07/02/2014 Specific Martin 1.020 1.01-1.02 Urine pH 5 5-6 Leukocytes NEG Neg Urine Nitrites NEG Neg Total Protein, Urine NEG Neg Urine Glucose NORM Norm Urine Ketones NEG Neg Urobilinogen NORM Norm Urine Bilirubin NEG Neg Urine Blood NEG Neg Urine DIP 06/02/2014 Specific Martin 1.015 1.01-1.02 Urine pH 7 High 5-6 Leukocytes TRACE Neg Urine Nitrites NEG Neg Total Protein, Urine NEG Neg Urine Glucose NORM Norm Urine Ketones NEG Neg Urobilinogen NORM Norm Urine Bilirubin NEG Neg Urine Blood NEG Neg Urine Culture And 01/08/2014 Urine Culture (SEE NOTE) 35 Sensitivities Urine DIP 01/08/2014 Specific Martin 1.015 1.01-1.02 Urine pH 6 5-6 Leukocytes + Neg Urine Nitrites NEG Neg Total Protein, Urine NEG Neg Urine Glucose NORM Norm Urine Ketones NEG Neg Urobilinogen NORM Norm Urine Bilirubin + Neg Urine Blood 250 MENSES High Neg Laboratory test finding 09/16/2013 Beta HCG Quantitative 8.19 IU/mL High 0.0-5.0 36 Urine DIP 10/23/2012 Leukocytes NEG Neg Urine Nitrites NEG Neg Urine pH 5 5-6 Total Protein, Urine NEG Neg Urine Glucose NORM Norm Urine Ketones NEG Neg Urobilinogen 1 High Norm Urine Bilirubin NEG Neg Urine Blood NEG Neg Specific Martin 1.03 High 1.01-1.02 Laboratory test finding 08/21/2012 Glucose 77 mg/dL 70-100 37 Lipid Profile (Trig/Chol/HDL) 08/21/2012 Triglycerides 82 mg/dL 40-200 Cholesterol 165 mg/dL Less than 200 HDL Cholesterol 55 mg/dL 40-60 38 Cholesterol/HDL Ratio 3.0 Average 1-4.44 LDL Cholesterol 93.6 mg/dL Less Than 100 39 CBC Auto Diff 04/17/2012 White Blood Count 7.4 10^3/uL 4.8-10.8 Red Blood Count 4.13 10^6/uL 4.0-5.4 Hemoglobin 13.1 g/dL 12.0-16.0 Hematocrit 39 % 35-47 Mean Corpuscular Volume 94 fL 80-97 Mean Corpuscular Hemoglobin 32 pg High 27-31 Mean Corpuscular HGB Conc 34 g/dL 31-36 Red Cell Distribution Width 12 % 10.5-15 Platelet Count 308 10^3/uL 150-450 Mean Platelet Volume 7 um3 Low 7.4-10.4 Abs Neutrophils 6.7 10^3/uL 1.5-7.7 Abs Lymphocytes 0.5 10^3/uL Low 1.0-4.8 Abs Monocytes 0.2 10^3/uL 0-0.8 Abs Eosinophils 0 10^3/uL 0-0.6 Abs Basophils 0 10^3/uL 0-0.2 Abs Nucleated RBC 0 10^3/uL Granulocyte % 91.2 % High 38-83 Lymphocyte % 6.4 % Low 25-47 Monocyte % 2.1 % 1-9 Eosinophil % 0.1 % 0-6 Basophil % 0.2 % 0-2 Nucleated Red Blood Cells % 0 Comp Metabolic Panel 04/17/2012 Sodium 138 mmol/L 133-145 Potassium 3.6 mmol/L 3.5-5.0 Chloride 107 mmol/L 101-111 Co2 Carbon Dioxide 21.0 mmol/L Low 22-32 Anion Gap 10.0 mmol/L 2-11 Glucose 137 mg/dL High 70-100 Blood Urea Nitrogen 6 mg/dL 6-24 Creatinine 0.70 mg/dL 0.50-1.40 BUN/Creatinine Ratio 8.6 8-20 Calcium 10.0 mg/dL High 8.1-9.9 Total Protein 7.1 GM/DL 6.2-8.1 Albumin 3.8 GM/DL 3.6-5.4 Globulin 3.3 GM/DL 2-4 Albumin/Globulin Ratio 1.2 1-3 Total Bilirubin 0.7 mg/dL 0.1-1.0 40 Alkaline Phosphatase 34 U/L 30-110 Alt 38 U/L 14-54 Ast 42 U/L 12-42 Egfr Non- 94.7 >60 Egfr 121.8 >60 41 Vaginal Culture 12/12/2011 Vaginal Culture Normal vaginal f <SEE NOTE> 42 .Gram Stain Additional MOD. EPI, NO WBC <SEE NOTE> 43 Laboratory test finding 12/12/2011 Thin Prep W/HPV(Lsil/FARSHAD/Asc) SEE NOTE 44 Urine DIP 12/12/2011 Leukocytes trace Neg Urine Nitrites neg Neg Urine pH 6 5-6 Total Protein, Urine trace Neg Urine Glucose norm Norm Urine Ketones neg Neg Urobilinogen norm Norm Urine Bilirubin neg Neg Urine Blood neg Neg Specific Martin na Low 1.01-1.02 CBC With Manual Diff 04/26/2011 White Blood Count 4.4 CUMM Low 4.8-10.8 Red Cell Count 3.92 CUMM Low 4.2-5.4 Hemoglobin 12.6 g/dL 12.0-16.0 Hematocrit 36 % 35-47 Mean Corpuscular Volume 92 um3 79-97 Mean Corpuscular Hemoglob 32 pg High 27-31 Mean Corpuscular HGB Cone 35 g/dL 32-36 Redcell Distribution WDTH 12 % 10.5-15 Platelet Count 261 CUMM 150-450 Mean Platelet Volume 6.8 um3 Low 7.4-10.4 Polysegmented Neutrophil 50 % 38-83 Band Neutrophil 2 % 0-8 Lymphocyte 38 % 25-47 Monocyte 6 % 0-13 Eosinophil 3 % 0-6 Atypical Lymph 1 % 0-6 Absolute Neutrophil Count 2.2 RBC Morphology NORMAL Comp Metabolic Panel 04/26/2011 Sodium 137 mmol/L 135-145 Potassium 4.6 mmol/L 3.5-5.0 Chloride 102 mmol/L 101-111 Co2 (Carbon Dioxide) 30.0 mmol/L 22-32 Anion Gap 5.0 mmol/L 2-11 45 Glucose 90 mg/dL 70-100 BUN 11 mg/dL 6-24 Creatinine 0.7 mg/dL 0.50-1.40 One Over Creatinine 1.42 BUN/Creatinine Ratio 15.7 8-20 Calcium 9.7 mg/dL 8.1-9.9 Total Protein 6.9 GM/DL 6.2-8.1 Albumin 4.0 GM/DL 3.6-5.4 Globulin 2.9 GM/DL 2-4 Albumin/Globulin Ratio 1.4 1-3 Bilirubin Total 0.6 mg/dL 0.4-1.5 46 Alkaline Phosphatase 25 U/L Low 30-110 Alt (SGPT) 23 U/L 14-54 Ast (Sgot) 25 U/L 12-42 eGFR Non- 95.2 > 60 eGFR 122.5 > 60 47 Laboratory test finding 04/26/2011 Erythrocyte Sed Rate 15 MM/HR 0-15 Urine DIP 11/30/2008 Leukocytes NEG Neg Urine Nitrites NEG Neg Urine pH 5 5-6 Total Protein, Urine NGE Neg Urine Glucose NORM Norm Urine Ketones NEG Neg Urobilinogen NORM Norm Urine Bilirubin NEG Neg Urine Blood TRACE Neg Specific Martin NA Low 1.01-1.02 Laboratory test finding 11/30/2008 HCG DIP Test NEG Neg Lipid Profile (Trig/Chol/HDL) 11/24/2008 Triglyceride 169 mg/dL 40-200 Cholesterol 231 mg/dL High Less Than 200 48 High Density Lipoprotein 69 mg/dL High 40-60 49 Cholesterol/HDL Ratio 3.35 AVERAGE 1-4.44 Low Density Lipoprotein 128 mg/dL High Less Than 100 50 Laboratory test 07/16/2007 Thin Prep W/HPV(Lsil/FARSHAD/Asc) SEE NOTE 51, 52 finding Chlamydia/GC 07/16/2007 Chlamydia Amplified Probe NEGATIVE 51 Amp(Centrex) GC Amplified Probe NEGATIVE 51 Vaginitis Dna Probe Screen 07/16/2007 Screen Trichomonas Vaginalis NEGATIVE 51 Dna Screen Gardnerella Vaginalis Dna NEGATIVE 51 Screen Tish Species Dna NEGATIVE 51 Comprehensive Metabolic 07/16/2007 Glucose 74 mg/dL 70-100 53 BUN 20 mg/dL High 4-18 53 Creatinine, Serum 0.9 mg/dL 0.5-1.2 53 Sodium 141 mmol/L 136-146 53 Potassium 4.2 mmol/L 3.5-5.3 53 Chloride 105 mmol/L 98-110 53 Carbon Dioxide 22 mmol/L 20-32 53 Albumin 4.1 g/dL 3.5-4.7 53 Protein, Total 7.0 g/dL 6.4-8.2 53 Calcium 9.3 mg/dL 8.4-10.4 53 Alkaline Phosphatase 28 U/L 10-118 53 Sgot (Ast) 20 U/L 3-40 53 SGPT (Alt) 12 U/L 7-50 53 Bilirubin, Total 0.40 mg/dL 0.30-1.20 53 Lipid Profile 07/16/2007 Cholesterol, Total 222 mg/dL High 120-200 53, 54 HDL Cholesterol 76 mg/dL High 40-60 53 LDL Cholesterol, Calc. 107 mg/dL 53, 55 Triglycerides 195 mg/dL 53, 56 LDL/HDL Cholesterol 1.4 53, 57 Chol/HDL Cholesterol 2.9 53, 58 Laboratory test finding 07/16/2007 TSH (Thyrotropin) 1.980 uIU/ml 0.350- 5.500 53 RPR NON-REACTIVE Non-Reactive 53 Anti Viral AB Screen 07/16/2007 HIV 1/O/2 Abs-Index Value <1.00 <1.00 53 , 59 HIV 1/O/2 Abs, Qual Non Reactive 53, 60 Laboratory test finding 07/16/2007 GFR (Calculated) >60 53, 61 Urine DIP 03/28/2006 Leukocytes neg Neg Urine Nitrites neg Neg Urine pH 5 5-6 Total Protein, Urine neg Neg Urine Glucose norm Norm Urine Ketones nge Neg Urobilinogen norm Norm Urine Bilirubin neg Neg Urine Blood neg Neg Specific Martin na Low 1.01-1.02 Laboratory test finding 03/28/2006 Cytology <SEE NOTE> 62 Urinalysis 02/19/2006 Ua Color YELLOW Ictotest-Urine NEGATIVE (NEG) Appearance-Urine CLEAR Blood-Urine 1+ Negative Esterase-Urine TRACE Negative Glucose-Urine NEGATIVE Negative Ketones-Urine NEGATIVE Negative Nitrite POSITIVE Negative PH-Urine 7.0 5-9 Protein-Urine 1+ Negative [id number] NEGATIVE Negative Urinalysis W/Microscopic 02/19/2006 Ua Color YELLOW Ictotest-Urine NEGATIVE (NEG) Appearance-Urine CLEAR Bacteria-Urine 1+ Blood-Urine 1+ Negative Epith Cells-Ur MODERATE Esterase-Urine TRACE Negative Glucose-Urine NEGATIVE Negative Ketones-Urine NEGATIVE Negative Mucus Urine MODERATE Nitrite POSITIVE Negative PH-Urine 7.0 5-9 Protein-Urine 1+ Negative RBC-Urine 0-2 0-2 [id number] NEGATIVE Negative Specific Martin-Ur 1.018 1.010-1.030 WBC-Urine 10-15 0-5 Urine Culture And 02/19/2006 Urine Culture Sensitivi NG 63 Sensitivites Laboratory test finding 02/14/2005 Erythrocyte Sed Rate 37 MM/HR High 0- 15 CBC With Manual Diff 02/14/2005 RBC Morphology NORMAL White Blood Count 6.7 CUMM 4.8-10.8 Hematocrit 38 % 35-47 Hemoglobin 12.8 g/dL 12.0-16.0 Mean Corpuscular HGB Cone 34 g/dL 32-36 Mean Corpuscular Hemoglob 31 pg 27-31 Mean Corpuscular Volume 92 um3 79-97 Mean Platelet Volume 7.0 um3 Low 7.4-10.4 Platelet Count 326 CUMM 150-450 Polysegmented Neutrophil 61 % 38-83 Red Cell Count 4.14 CUMM Low 4.2-5.4 Redcell Distribution WDTH 12 % 10.5-15 Atypical Lymph 2 % 0-6 Eosenophil 11 % High 0-6 Lymphocyte 17 % 5-47 Monocyte 9 % 0-13 Laboratory test finding 02/14/2005 C Reactive Protien High 7.4 mg/L < 7.48 64 Sensit Parvovirus B19 Igg & Igm 02/14/2005 Parvovirus B19 Igg < 0.9 INDEX < 0.9 Antibodies Parvovirus B19 Igm Antibodies < 0.9 INDEX < 0.9 65 Laboratory test finding 11/10/2004 Thin Layer Pap REC'D-SEE IMAGE W/Reflex To HPV For ASCUS Laboratory test finding 09/28/2004 Strep Screen NEG Neg Lipid Profile 09/08/2004 Cholesterol/HDL Ratio 3.30 AVERAGE 1-4.44 (Trig/Chol/HDL) Cholesterol 218 mg/dL High Less Than 200 66 Triglyceride 143 mg/dL 40-200 High Density Lipoprotein 66 mg/dL High 40-60 67 Low Density Lipoprotein 123 mg/dL High Less Than 100 68 Throat Culture Full 05/26/2004 Throat Culture Full MODERATE [BETA S 69 <SEE NOTE> Chlamydia + GC Group 10/21/2003 Chlamydia By Dna NEGATIVE Negative Probe GC By Dna Probe NEGATIVE Negative Laboratory test finding 10/21/2003 Thin Layer Pap W/ Reflx REC'D-SEE IMAGE To HPV Urine DIP 10/21/2003 Leukocytes NEG Neg Urine Nitrites NEG Neg Urine pH 5 5-6 Total Protein, Urine NEG Neg Urine Glucose NORM Norm Urine Ketones NEG Neg Urobolinogen NORM Norm Urine Bilirubin NEG Neg Urine Blood TRACE Neg Urine DIP 07/16/2003 Leukocytes NEG Neg Urine Nitrites NEG Neg Urine pH 5 5-6 Total Protein, Urine NEG Neg Urine Glucose NORM Norm Urine Ketones NEG Neg Urobolinogen NORM Norm Urine Bilirubin NEG Neg Urine Blood MENSES Neg Vaginitis Dna Probe Screen 07/16/2003 Screen Trichomonas Vaginalis Dna FINAL 70 Screen Tish Species Dna FINAL 71 Screen Gardnerella Vaginalis Dna FINAL 72 Laboratory test finding 03/27/2003 Strep Screen NEG Neg 1 [id number] 2 Because ethnic data is not always readily available, this report includes an eGFR for both -Americans and non- Americans. The National Kidney Disease Education Program (NKDEP) does not endorse the use of the MDRD equation for patients that are not between the ages of 18 and 70, are , have extremes of body size, muscle mass, or nutritional status, or are non- or non-. According to the National Kidney Foundation, irrespective of diagnosis, the stage of the disease is based on the level of kidney function: Stage Description GFR(mL/min/1.73 m(2)) 1 Kidney damage with normal or decreased GFR 90 2 Kidney damage with mild decrease in GFR 60-89 3 Moderate decrease in GFR 30-59 4 Severe decrease in GFR 15-29 5 Kidney failure <15 (or dialysis) 3 [id number] 4 Normal Range 180 to 914 Indeterminate Range 145 to 180 Deficient Range <145 5 [id number] 7 SEE RESULT BELOW Name: CARY PRECIADO : [address]: Brigida Frazier MD Acct: [id number] Unit: [id number] AGE: 41 Location: ED Re04/11/17 SEX: F Status: DEP ER SPEC: [id number] YUNG: 04/11/17 [facility] DR: Brigida Frazier MD REQ: [id number] RECD: 04/11/17 STATUS: KAMI MONZON DR: Kehinde Cloud MD _ SOURCE: BLOOD,VENO SPDES: ORDERED: Blood Cult Procedure Result Reported Site Aerobic Culture Bottle Final 04/16/171127 ML No Growth Day 5 Anaerobic Culture Bottle Final 04/16/171127 ML No Growth Day 5 * ML - MAIN LAB ([facility]) . END OF REPORT * ML=Testing performed at Main Lab DEPARTMENT OF PATHOLOGY, [address] [place] [address] Tommy Sewell M.D. Director [facility] # [id number] 9 [id number] 10 [id number] 11 Acute inflammation: >10.00 12 SEE RESULT BELOW Name: PRECIADO,CARY Liliane : [address]: Daniel Reilly MD Acct: [id number] Unit: [id number] AGE: 41 Location: LAB Re07/28/16 SEX: F Status: REG REF SPEC: [id number] YUNG: 07/28/16 [facility] [address]: Daniel Reilly MD REQ: [id number] RECD: 07/28/16 STATUS: KAMI MONZON DR: Kehinde Cloud MD _ SOURCE: URINE SPDESC: ORDERED: Urine Culture QUERIES: Urine Source: Clean Catch Procedure Result Reported Site Urine Culture Final 07/29/16- 1231 ML No Growth (<1,000 CFU/mL) * ML - MAIN LAB ([facility]) . END OF REPORT * ML=Testing performed at Main Lab DEPARTMENT OF PATHOLOGY, [address] [place] [address] Tommy Sewell M.D. Director [facility] # [id number] 13 Because ethnic data is not always readily available, this report includes an eGFR for both -Americans and non- Americans. The National Kidney Disease Education Program (NKDEP) does not endorse the use of the MDRD equation for patients that are not between the ages of 18 and 70, are , have extremes of body size, muscle mass, or nutritional status, or are non- or non-. According to the National Kidney Foundation, irrespective of diagnosis, the stage of the disease is based on the level of kidney function: Stage Description GFR(mL/min/1.73 m(2)) 1 Kidney damage with normal or decreased GFR 90 2 Kidney damage with mild decrease in GFR 60-89 3 Moderate decrease in GFR 30-59 4 Severe decrease in GFR 15-29 5 Kidney failure <15 (or dialysis) 14 Serologic response to B. burgdorferi infection is not detected, but cannot rule out early infection during which low or undetectable antibody levels to B. burgdorferi may be present. If clinically indicated, a new serum specimen should be submitted in 7-14 days. Test Performed by: [address] [address] Biomedical Equipment Support Specialist: Madhu Mims II, M.D., Ph.D. 15 [id number] 16 Acute inflammation: >10.00 17 Test Performed by: [place] [address] Biomedical Equipment Support Specialist: Madhu Mims II, M.D., Ph.D. 18 PLEASE CALL RESULTS TO OFFICE 19 <5.0 Negative 5.0 - 25.0 Indeterminate (Repeat testing recommended after 72 hours) >25.0 Positive Perimenopausal women can display HCG levels of up to 20 mIU/mL 20 FASTING 21 Desirable <150 Borderline high 150-199 High 200-499 Very High >500 22 Desirable <200 Borderline high 200-239 High >239 23 Low <40 Desirable: 40-60 High: >60 24 Desirable: <100 mg/dL Near Optimal: 100-129 mg/dL Borderline High: 130-159 mg/dL High: 160-189 mg/dL Very High: >189 mg/dL 25 SEE RESULT BELOW Name: CARY PRECIADO : [address]: Tawanna Garcia MD Acct: [id number] Unit: [id number] AGE: 40 Location: [facility] Re07/05/15 SEX: F Status: REG REF SPEC: [id number] YUNG: 07/05/15-[address]: Tawanna Garcia MD REQ: [id number] RECD: 07/05/15 STATUS: SOUT _ ORDERED: IMAGE ANALYSIS, HPV/Thin Prep, HPV 16/18 GENE FINAL DIAGNOSIS Negative for Intraepithelial lesion or Malignancy A. Ectocervical/Endocervical Specimen Adequacy: Satisfactory of evaluation Transformation zone component not identified Patient Information: HPV: High risk HPV RNA testing regardless of pap results. HPV 16/18 Genotype for HPV pos Actual Specimen Date: 07/05/15 Date of Last Specimen: 03/28/06 Date Time Test Result Flag (u) Normal Range 07/05/15 1536 HPV RNA RFLX GE Negative Negative The high-risk HPV types detected by the assay include: 16, 18, 31, 33, 35, 39, 45, 51, 52, 56, 58, 59, 66, and 68. Signed (signature on file) EMILY Ortiz (ASCP) 07/06 1230 This Pap test was evaluated with the assistance of the [employer] MediaPrep Test Imaging System. Due to cytologic findings at the fabric separator operator microscope, comprehensive manual rescreening by a Hse Manager may be required. The Pap Smear is a screening test designed to aid in the detection of premalignant and malignant conditions of the uterine cervix. It is not a diagnostic procedure and should not be used as the sole means of detecting cervical cancer. Both false- positive and false- negative reports do occur. Depending on your risk status, a Pap smear should be obtained and evaluated every 1-3 years. END OF REPORT * ML=Testing performed at Main Lab DEPARTMENT OF PATHOLOGY, [address] [place] [address] Tommy Sewell M.D. Director [facility] # [id number] 26 The high-risk HPV types detected by the assay include: 16, 18, 31, 33, 35, 39, 45, 51, 52, 56, 58, 59, 66, and 68. 27 RUN DATE: 08/23/14 [facility] LAB LIVE PAGE 1 RUN TIME: [address] [place] [address] Specimen Inquiry Name: CARY PRECIADO : [address]: Kehinde Cloud MD Acct: [id number] Unit: [id number] AGE: 39 Location: [facility] Re08/21/14 SEX: F Status: REG REF SPEC: [id number] YUNG: 08/21/14-1306 [facility] [address]: Kehinde lCoud MD REQ: [id number] RECD: 08/21/14-6341 STATUS: COMP _ SOURCE: URINE SPDESC: ORDERED: Urine Culture QUERIES: Provider Requisition # [id number] Procedure Result Verified Site Urine Culture Final 08/23/14- 1023 L No Growth Day 2 (<1,000 CFU/mL) END OF REPORT * ML=Testing performed at Main Lab DEPARTMENT OF PATHOLOGY, [address] [place] [address] Tommy Sewell M.D. Director [facility] # [id number] 28 Because ethnic data is not always readily available, this report includes an eGFR for both -Americans and non- Americans. The National Kidney Disease Education Program (NKDEP) does not endorse the use of the MDRD equation for patients that are not between the ages of 18 and 70, are , have extremes of body size, muscle mass, or nutritional status, or are non- or non-. According to the National Kidney Foundation, irrespective of diagnosis, the stage of the disease is based on the level of kidney function: Stage Description GFR(mL/min/1.73 m(2)) 1 Kidney damage with normal or decreased GFR 90 2 Kidney damage with mild decrease in GFR 60-89 3 Moderate decrease in GFR 30-59 4 Severe decrease in GFR 15-29 5 Kidney failure <15 (or dialysis) 29 Normal Range 180 to 914 Indeterminate Range 145 to 180 Deficient Range <145 30 REFERENCE VALUE 25-HYDROXY D TOTAL (D2+D3) Optimum levels in the healthy population are 20-50, patients with bone disease may benefit from higher levels within this range. Test Performed by: [place] [address] Biomedical Equipment Support Specialist: Madhu Mims II, M.D., Ph.D. 31 RUN DATE: 07/15/14 [facility] LAB LIVE PAGE 1 RUN TIME: [address] [place] [address] Specimen Inquiry Name: CARY PRECIADO : [address]: Nolvia Sargent MD Acct: [id number] Unit: [id number] AGE: 39 Location: [facility] Re07/13/14 SEX: F Status: REG REF SPEC: [id number] YUNG: 07/13/14-8 [facility] DR: Nolvia Sargent MD REQ: [id number] RECD: 07/13/14 STATUS: COMP _ SOURCE: URINE SPDESC: ORDERED: Urine Culture QUERIES: Provider Requisition # [id number] Procedure Result Verified Site Urine Culture Final 07/15/14- 1018 ML Organism 1 STREP GROUP B [place] Count 1-10,000 (Few) CFU/ML END OF REPORT * ML=Testing performed at Main Lab DEPARTMENT OF PATHOLOGY, [facility] [employer] [place] [address] Tommy Sewell M.D. Director [facility] # [id number] 32 RUN DATE: 07/07/14 [facility] LAB LIVE PAGE 1 RUN TIME: [address] [place] [address] Specimen Inquiry Name: CARY PRECIADO : [address]: Kehinde Cloud MD Acct: [id number] Unit: [id number] AGE: 39 Location: [facility] Re07/05/14 SEX: F Status: REG REF SPEC: [id number] YUNG: 07/05/14-[address]: Kehinde Cloud MD REQ: [id number] RECD: 07/05/14 STATUS: COMP _ SOURCE: URINE SPDESC: ORDERED: Urine Culture Procedure Result Verified Site Urine Culture Final 07/07/14- 1103 ML Organism 1 NORMAL RYAN [place] Count 10-25,000 (Moderate) CFU/ML END OF REPORT * ML=Testing performed at Main Lab DEPARTMENT OF PATHOLOGY, [facility] [employer] [place] [address] Tommy Sewell M.D. Director CLIA # [id number] 33 RUN DATE: 07/03/14 [facility] LAB LIVE PAGE 1 RUN TIME: 1428 [facility] [employer] [place], [place] [address] Specimen Inquiry Name: CARY PRECIADO : [address]: Nolvia Sargent MD Acct: [id number] Unit: [id number] AGE: 39 Location: [facility] Re07/02/14 SEX: F Status: REG REF SPEC: [id number] YUGN: 07/02/14-[address]: Nolvia Sargent MD REQ: [id number] RECD: 07/02/14 STATUS: COMP _ SOURCE: VAGINAL SPDESC: ORDERED: Brent,Yeast DNA, Trich DNA QUERIES: Provider Requisition # [id number] Procedure Result Verified Site Gardnerella/Yeast: Vaginal DNA Final 07/03/14- 1426 ML Organism 1 Negative Gardnerella Organism 2 Negative Tish The presence of G. vaginalis, although suggestive, is not diagnostic for bacterial vaginosis. Results should be interpreted in conjuction with other clinical and laboratory data available. Women with vaginal discharge should be evaluated for risk factors of cervicitis and pelvic inflammatory disease, toxic shock syndrome (S.aureus), and if present, evaluated for organisms not included in this assay such as N. gonorrhoeae, C. trachomatis, Mobiluncus, Mycoplasma and/or Prevotella. Mixed infections may occur. The performance of this test on patient specimens collected during or immediately after antimicrobial therapy is unknown. The presence or absence of Tish species, or G. vaginalis cannot be used as a test for therapeutic success or failure. Trichomonas: Vaginal DNA Probe Final 07/03/14- 1426 ML Organism 1 Negative Trichomonas CONTINUED ON NEXT PAGE * ML=Testing performed at Main Lab DEPARTMENT OF PATHOLOGY, [address] [place] [address] Tommy Sewell M.D. Director [facility] # [id number] RUN DATE: 07/03/14 [facility] LAB LIVE PAGE 2 RUN TIME: [address] [place] [address] Specimen Inquiry Patient: CARY PRECIADO [id number] (Continued) Specimen: [id number] Collected: 07/02/14 Received: 07/02/14 (Continued) Procedure Result Verified Site Trichomonas: Vaginal DNA Probe Final (continued) 07/03/14 142 The presence or absence of T. vaginalis cannot be used as a test for therapeutic success or failure. END OF REPORT * ML=Testing performed at Main Lab DEPARTMENT OF PATHOLOGY, [facility] [employer] [place], [place] [address] Tommy Sewell M.D. Director [facility] # [id number] 34 RUN DATE: 07/05/14 [facility] LAB LIVE PAGE 1 RUN TIME: 844 [facility] [employer] [place], [place] [address] Specimen Inquiry Name: CARY PRECIADO : [address]: Nolvia Sargent MD Acct: [id number] Unit: [id number] AGE: 39 Location: [facility] Re07/02/14 SEX: F Status: REG REF SPEC: [id number] YUNG: 07/02/14-[address] [facility] [address]: Nolvia Sargent MD REQ: [id number] RECD: 07/02/14 STATUS: COMP _ SOURCE: URINE SPDESC: ORDERED: Urine Culture QUERIES: Provider Requisition # [id number] Procedure Result Verified Site Urine Culture Final 07/05/14- 0845 ML Organism 1 NORMAL RYAN Montgomery Count 1-10,000 (Few) CFU/ML END OF REPORT * ML=Testing performed at Main Lab DEPARTMENT OF PATHOLOGY, [facility] [employer] [place], [place] [address] Tommy Sewell M.D. Director [facility] # [id number] 35 RUN DATE: 01/10/14 [facility] LAB LIVE PAGE 1 RUN TIME: 015 [facility] [employer] [place], [place] [address] Specimen Inquiry Name: CARY PRECIADO : [address]: Lucius Tinajero NP Acct: [id number] Unit: [id number] AGE: 38 Location: [facility] Re01/08/14 SEX: F Status: REG REF SPEC: [id number] YUNG: 01/08/14-[address]: Lucius Tinajero NP REQ: [id number] RECD: 01/08/14 STATUS: COMP _ SOURCE: URINE SPDESC: ORDERED: Urine Culture QUERIES: [employer] Number [id number] Procedure Result Verified Site Urine Culture Final 01/10/14- 1018 ML Organism 1 ENTEROCOCCUS SPECIES GP D Montgomery Count 25-50,000 (Moderate) CFU/ML 1. ENTEROCOCCUS SPECIES GP D M.I.C. RX --------- ------ Ampicillin R Penicillin R Ciprofloxacin <=0.5 S Gentamicin High Level S Levofloxacin 2 S Linezolid 2 S Nitrofurantoin 32 S * Quinupristin/Dalfopristin 8 R * Streptomycin High Level S Tetracycline <=1 S Doxycycline - Deduced S * Minocycline - Deduced S Tigecycline <=0.12 S Vancomycin 2 S Imipenem-Deduced R * These antibiotics are not available in the [facility] Formulary Contact the Microbiology Department for any additional antibiotic reporting. END OF REPORT * ML=Testing performed at Main Lab DEPARTMENT OF PATHOLOGY, [address] [place] [address] Tommy Sewell M.D. Director [facility] # [id number] 36 <5.0 Negative 5.0 - 25.0 Indeterminate >25.0 Positive 37 FASTING 38 HDL Interpretation: Undesirable: High Risk: Less than 40 MG/DL Desirable: Low Risk: Greater than 60 MG/DL 39 LDL Interpretation: Low Risk Optimal Level: LDL Less than 100 MG/DL Near or Above Optimal: LDL 100-129 MG/DL Borderline High Risk: LDL 130-159 MG/DL High Risk: LDL 160-189 MG/DL Very High Risk: LDL Greater than 189 MG/DL 40 A metabolite of Naproxen, O-desmethylnaproxen, has been shown to interfere with the Jenmalaik-Deferiet method for measuring total bilirubin. Samples from patients who have taken Naproxen have shown spurious elevation in total bilirubin levels. 41 Because ethnic data is not always readily available, this report includes an eGFR for both -Americans and non- Americans. The National Kidney Disease Education Program (NKDEP) does not endorse the use of the MDRD equation for patients that are not between the ages of 18 and 70, are , have extremes of body size, muscle mass, or nutritional status, or are non- or non-. According to the National Kidney Foundation, irrespective of diagnosis, the stage of the disease is based on the level of kidney function: Stage Description GFR(mL/min/1.73 m(2)) 1 Kidney damage with normal or decreased GFR 90 2 Kidney damage with mild decrease in GFR 60-89 3 Moderate decrease in GFR 30-59 4 Severe decrease in GFR 15-29 5 Kidney failure <15 (or dialysis) 42 Normal vaginal ryan. 43 MOD. EPI, NO WBC, MANY GRAM POS RODS, 44 [employer] DEPARTMENT OF PATHOLOGY or Extension [address] [facility] REPORT PATIENT: CARY PRECIADO : 1975 AGE: 36 Y SEX: F ACCT: [id number] PROCEDURE DATE: 12/12/2011 DATE RECEIVED: 12/13/2011 REQUESTING PHYSICIAN: JENNIFER FUENTES LOCATION: [facility] Case No. [id number] PATIENT DATA: [id number] SPECIMEN SUBMITTED: * * (HPVII) THIN PREP W/HPV (LSIL/ASC/FARSHAD) * * CERVICAL/ENDOCERVICAL RELEVANT HISTORY: Previous smear date: 07/16/2007 SPECIMEN ADEQUACY SATISFACTORY FOR EVALUATION, ENDOCERVICAL TRANSFORMATION ZONE COMPONENT PRESENT GENERAL CATEGORIZATION NEGATIVE FOR INTRAEPITHELIAL LESIONS OR MALIGNANCY COMMENTS Thin Prep Pap tests are examined with an FDA approved location-guidance system. ADDITIONAL COPIES SENT TO: Screened/Rescreened Electronically Signed Sign Out Date/Time: by: by: DILMA DARNELL, 12/14/2011 09:10 CT(ASCP) Note: The Pap smear is a screening test designed to aid in the detection of premalignant and malignant conditions of the uterine cervix. It is not a diagnostic procedure and should not be used as the sole means of detecting cervical cancer. Both false-positive and false-negative reports do occur. 00 UA Pap Smear performed at [employer] Dir: Conrado Davis MD, [address] [facility] [address] 01 plate glass grinder [facility] [place] Dir: Corey Samuel MD, [address] [facility] [address] 02 BN [facility] [place] Dir: Madhu Panda MD, [address] [facility] [address] For inquiries regarding HPV test results, the physician may contact [facility]: [phone] "" 45 Anion gap measurement may be of limited value in the presence of any alkalosis, especially in a combined acid base disorder. . 46 A metabolite of Naproxen, O-desmethylnaproxen, has been shown to interfere with the Jendrassik-Deferiet method for measuring total bilirubin. Samples from patients who have taken Naproxen have shown spurious elevation in total bilirubin levels. 47 Because ethnic data is not always readily available, this report includes an eGFR for both -Americans and non- Americans. The National Kidney Disease Education Program (NKDEP) does not endorse the use of the MDRD equation for patients that are not between the ages of 18 and 70, are , have extremes of body size, muscle mass, or nutritional status, or are non- or non-. According to the National Kidney Foundation, irrespective of diagnosis, the stage of the disease is based on the level of kidney function: Stage Description GFR(mL/min/1.73 m(2)) 1 Kidney damage with normal or decreased GFR 90 2 Kidney damage with mild decrease in GFR 60-89 3 Moderate decrease in GFR 30-59 4 Severe decrease in GFR 15-29 5 Kidney failure <15 (or dialysis) 48 CHOLESTEROL INTERPRETATION: Desirable: Less than 200 MG/DL Borderline-High Risk: 200-239 MG/DL High-Risk: 240 MG/DL and over 49 HDL INTERPRETATION: Undesirable: High Risk: Less than 40 MG/DL Desirable: Low Risk: Greater than 60 MG/DL 50 LDL INTERPRETATION: Low Risk Optimal Level: LDL Less than 100 MG/DL Near or Above Optimal: LDL 100-129 MG/DL Borderline High Risk: LDL 130-159 MG/DL High Risk: LDL 160-189 MG/DL Very High Risk: LDL Greater than 189 MG/DL 51 The performance of amplified Chlamydia trachomatis (CT) and Neisseria gonorrhoeae (NG) testing from cervical samples collected in Thin Prep vials has not been approved by the FDA. However, amplified CT and NG testing from Thin Prep samples has been validated by [email or web address] and approved by the [facility] as an off-label use of this assay for diagnostic purposes. 52 [employer] DEPARTMENT OF PATHOLOGY or Extension 7585 [facility] CYTOLOGY REPORT PATIENT: ACRY FARFAN : 1975 AGE: 32 Y SEX: F ACCT: [id number] PROCEDURE DATE: 07/16/2007 DATE RECEIVED: 07/18/2007 REQUESTING PHYSICIAN: LUCIUS TINAJERO NP LOCATION: [facility] Case No. [id number] PATIENT DATA: [id number] SPECIMEN SUBMITTED: * * (HPVII) THIN PREP W/HPV (LSIL/ASC/FARSHAD) * * CERVICAL RELEVANT HISTORY: LMP: 06/28/2007 Contraceptive: KAREN Previous smear date: 03/28/2006 SPECIMEN ADEQUACY SATISFACTORY FOR EVALUATION, ENDOCERVICAL TRANSFORMATION ZONE COMPONENT PRESENT GENERAL CATEGORIZATION NEGATIVE FOR INTRAEPITHELIAL LESIONS OR MALIGNANCY ADDITIONAL COPIES SENT TO: Screened/Rescreened by: Electronically Signed by: EMILY EVANS(ASCP) Signed Date 07/19/2007 17:35 Thin Prep Pap tests are examined with an FDA-approved location-guidance system (85676). Performed @ [email or web address], [employer] [address] [place] [id number] 53 gc done on pap 54 Cholesterol Risk Levels (NIH) Recommended: under 200 mg/dl Borderline : 200-239 mg/dl High Risk : Above 240 mg/dl 55 The National Cholesterol Education Program recommends the following ranges for LDL Cholesterol: Optimal under 100 mg/dl Near or above Optimal 100 - 129 mg/dl Borderline High 130 - 159 mg/dl High 160 - 189 mg/dl Very High above 190 mg/dl 56 Triglyceride Risk Levels: Normal : <150 mg/dl Borderline : 150-199 mg/dl High : 200-499 mg/dl Very High : >500 mg/dl 57 LDL/HDL Risk Ratio Levels MALE FEMALE 1/2 X Average 1.00 1.47 Average 3.55 3.22 2 X Average 6.25 5.03 3 X Average 7.99 6.14 58 CHOL/HDL Risk Ratio Levels MALE FEMALE 1/2 X Average 3.4 3.3 Average 5.0 4.4 2 X Average 9.5 7.0 3 X Average 24.0 11.0 59 Index Value: Specimen reactivity relative to the negative cutoff. 60 Negative: Non-reactive by ICMA Positive: Repeatedly reactive by ICMA. Refer to Western Blot confirmatory test for final interpretation. . Physician should benefits counselor the patient about result significance. Patient information should be kept strictly confidential. 61 mL/min/1.73m2 . Normal Function or Mild Renal Disease, if clinically at risk: >or=60 Moderately decreased: 30 - 59 Severely decreased: 15 - 29 Renal Failure: <15 . Please note that the MDRD equation requires an additional adjustment for -Americans (multiply the GFR result by 1.210). . Glomerular Filtration Rate (GFR) is estimated based on the MDRD equation, which assumes a steady state for creatinine (Anamaria Int Med 139/2 137-149, 2003), as recommended by the National Kidney Disease Education Program in conjunction with the National Institutes of Health and the National Kidney Foundation. . Clinical conditions in which it may be necessary to measure GFR by using clearance methods include extremes of age and body size, severe malnutrition or obesity, diseases of skeletal muscle, paraplegia or quadriplegia, vegetarian diet, rapidly changing kidney function, and calculation of the dose of potentially toxic drugs that are excreted by the kidneys. 62 ---- RUN DATE: 03/30/06 [facility] NMI LIVE PAGE 1 RUN TIME: 1145 Specimen Inquiry RUN USER: INTERFACE [id number] CARY FARFAN <REG REF 03/28> ([id number]) Kehinde Ortega MD. -- Specimen: [id number] [id number] Spec Date: 03/28/[address]: Kehinde Rodriguez Spec Type: CYTOLOGY Received: 03/29/06-3139 Copies to: SOURCE ECTOCERVICAL/ENDOCERVICAL Thin Prep with Reflex HPV Test PATIENT INFORMATION ACTUAL COLLECTION DATE: 03/28/06 LAST MENSTRUAL PERIOD: 02/25/06 DATE OF PRIOR SPECIMEN: 11/10/04 ADEQUACY OF SPECIMEN Satisfactory for evaluation * Transformation zone component identified * DIAGNOSIS NEGATIVE FOR INTRAEPITHELIAL LESION OR MALIGNANCY * The Pap Smear is a screening test designed to aid in the detection of premalign ant and malignant conditions of the uterine cervix. It is not a diagnostic procedure an d should not be used as the sole means of detecting cervical cancer. Both false-positive and false-negative reports do occur. Depending on your risk status, a Pap smear adrian uld be obtained and evaluated every one to three years. Signed Anand LAWRENCE CT(ASCP) 03/30/06 (p reliminary) Electronically signed Anand LAWRENCE CT(ASCP) 03/30/06 -- -- DEPARTMENT OF PATHOLOGY, [address] [place] [address] [facility] Permit #[id number] Madhu Mcmahan II, M.D. Director Ronal Schultz irector -- 63 FINAL: NO GROWTH DAY 2 (<1,000 CFU/mL) 64 Less Than 1.0......Low Risk of Cardiovascular Disease 1.0-3.0............Medium Risk (<2 Fold Increase) Greater Than 3.0...High Risk (Approximately 2-Fold Increase) The above guidelines are referenced in "Markers of Inflammation and Cardiovascular Disease: Application to Clinical and Public Health Practice." A Statement for Health Professionals from the Centers for Disease Control and Prevention and the [place] Heart Association. (Reference: Circulation 2003 107:499-511) SERUM LEVELS OF HIGH SENSITIVITY C-REACTIVE PROTEIN MEASURED BY THE JAIRO YODIT LXi 725 SYSTEM SHOULD NOT BE INTERPRETTED ABSOLUTE EVIDENCE OF THE PRESENCE OR ABSENCE OF DISEASE. A HIGH SENSITIVITY CRP VALUE SHOULD BE USED IN CONJUNCTION WITH OTHER PERTINENT CLINICAL AND DIAGNOSTIC INFORMATION. 65 REFERENCE RANGE FOR PARVOVIRUS B19 IGG IGM ABS: LESS THAN 0.9 INDEX . . . NEGATIVE 0.9 - 1.1 INDEX . . . . . EQUIVOCAL GREATER THAN 1.1 INDEX . POSITIVE TEST PERFORMED BY: [employer]. [address] [place] [address] Please note the change in Reference Range Effective 00 . 66 Classification: Borderline High . 67 Classification: High . 68 CALCULATED LDL APPROXIMATES THE VALUE OF A DIRECT LDL MEASUREMENT. Classification: Near or above optimal . 69 MODERATE [BETA STREP GROUP C] WITH NORMAL THROAT RYAN BETA STREP GROUP C 70 Source: VAGINAL NEGATIVE 71 Source: VAGINAL NEGATIVE 72 Source: VAGINAL POSITIVE Procedures Date CPT Code Description Status 01/22/2009 40202 EKG, at Least 12 Leads w/Interpretation and Report Completed 09/24/2008 73503 Therapeutic,Prophylactic,Or Diagnostic Inj,SC/Im Completed Specify Drug 09/24/200871695 Inj Of Tendon Sheath,Or Ligament, Aponeurosis Completed 10/03/2007 17608 EKG, at Least 12 Leads w/Interpretation and Report Completed Encounters Type Date Location Provider CPT E/M Dx Office Visit 12/10/2017 3:45p [facility] Kehinde Cloud M.D. 54435 G25.81 F41.9 M65.4 Office Visit 11/07/2017 3:15p Main Office Kehinde Cloud M.D. 60280 R10.2 F41.9 Office Visit 10/16/2017 3:45p Main Office Kehinde Cloud M.D. 39753 R10.2 F41.9 Office Visit 09/13/2017 4:15p Main Office Kehinde Cloud M.D. 21996 R10.2 F41.9 Office Visit 08/16/2017 3:30p Main Office Kehinde Cloud M.D. 41294 R10.2 F41.9 Office Visit 06/28/2017 3:15p Main Office Kehinde Cloud M.D. 15335 R10.2 Office Visit 05/16/2017 3:45p Main Office Kehinde Cloud M.D. 32768 M54.5 F41.9 Z23 Office Visit 05/02/2017 3:30p Main Office Kehinde Cloud M.D. 46594 M54.5 F41.9 Office Visit 04/19/2017 3:45p Main Office Kehinde Cloud M.D. 28715 M54.5 F41.9 Z23 Office Visit 03/30/2017 4:00p Main Office Kehinde Cloud M.D. 36675 M54.9 Office Visit 02/13/2017 3:15p Main Office Kehinde Cloud M.D. 49605 M54.5 Office Visit 12/28/2016 4:15p Main Office Kehinde Cloud M.D. 99068 M54.5 F41.9 Office Visit 11/28/2016 4:00p Main Office Kehinde Cloud M.D. 36622 M54.5 F41.9 Office Visit 11/16/2016 11:30a Main Office Kehinde Cloud M.D. 10484 M54.5 F41.9 Office Visit 10/24/2016 10:00a Main Office Kehinde Cloud M.D. 28443 M54.5 F41.9 Office Visit 10/09/2016 2:30p Main Office ARIEL Matta 28698 M54.5 Office Visit 08/31/2016 9:30a Main Office Kehinde Cloud M.D. 15377 M54.5 N83.299 Office Visit 08/02/2016 3:45p Main Office Kehinde Cloud M.D. 49750 M25.551 M54.5 Office Visit 07/11/2016 3:30p Main Office Kehinde Cloud M.D. 49372 M54.5 M25.551 Office Visit 06/21/2016 3:45p Main Office Kehinde Cloud M.D. 43888 R23.2 Office Visit 06/01/2016 3:00p Main Office Kehinde Cloud M.D. 36699 M54.9 Office Visit 05/16/2016 1:30p Main Office Kehinde Cloud M.D. 15195 M54.9 Office Visit 05/08/2016 3:30p Main Office DENNY MattaC 42840 S39.012A Office Visit 04/17/2016 11:30a Main Office ARIEL Fuentes 98492 J06.9 Office Visit 03/28/2016 3:45p Main Office Kehinde Cloud M.D. 63108 F41.9 Z23 Office Visit 02/03/2016 9:30a Main Office Kehinde Cloud M.D. 22465 L72.3 Office Visit 12/30/2015 9:30a Main Office Kehinde Cloud M.D. 71707 Z00.00 F41.9 E78.0 E55.9 Office Visit 07/22/2015 10:00a Main Office Kehinde Cloud M.D. 96549 R35.0 F41.9 Office Visit 07/08/2015 10:45a Main Office Kehinde Cloud M.D. 16340 R35.0 Office Visit 07/05/2015 11:45a Main Office Tawanna Garcia M.D., R.DLexie 21440 R39.89 Office Visit 05/04/2015 11:30a Main Office Kehinde Cloud M.D. 21939 R51 Office Visit 02/08/2015 10:45a Main Office KLEVER MattaPIreneC 36677 922.31 Office Visit 09/04/2014 3:15p Main Office Kehinde Cloud M.D. 43538 788.41 300.00 Office Visit 08/21/2014 11:30a Main Office Kehinde Cloud M.D. 68233 788.41 300.00 Office Visit 08/05/2014 3:45p Main Office Nolvia Sargent M.D. 27797 300.00 788.99 Office Visit 07/21/2014 9:30a Main Office Kehinde Cloud M.D. 35098 788.41 300.00 Office Visit 07/13/2014 11:45a Main Office Nolvia Sargent M.D. 24555 788.41 300.00 Office Visit 07/07/2014 11:45a Main Office Kehinde Cloud M.D. 44031 788.41 Office Visit 07/06/2014 2:15p Main Office DENNY FuentesC 99410 788.41 Office Visit 07/02/2014 12:30p Main Office Nolvia Sargent M.D. 01148 599.0 616.10 Office Visit 06/02/2014 2:00p Main Office Kehinde Cloud M.D. 30371 616.10 Office Visit 05/19/2014 2:30p Main Office Kehinde Cloud M.D. 58394 873.0 Office Visit 04/21/2014 10:30a Main Office Kehinde Cloud M.D. 91961 724.5 Office Visit 01/08/2014 1:45p Main Office ARIEL Matta 35998 788.1 Office Visit 10/23/2012 2:15p Main Office Kehinde Cloud M.D. 56724 V70.0 300.00 Office Visit 08/27/2012 3:15p Main Office Kehinde Cloud M.D. 04566 300.00 Office Visit 07/18/2012 10:00a Main Office Kehinde Cloud M.D. 72445 300.00 272.0 Office Visit 06/25/2012 11:30a Main Office Kehinde Cloud M.D. 58861 300.00 Office Visit 04/30/2012 3:45p Main Office Kehinde Cloud M.D. 12283 309.9 Office Visit 04/23/2012 2:00p Main Office Kehinde Cloud M.D. 03873 634.90 Office Visit 01/30/2012 3:30p Main Office Kheinde Cloud M.D. 84643 V26.42 Office Visit 12/12/2011 2:45p Main Office ARIEL Fuentes 96542 623.8 Office Visit 09/14/2011 3:00p Main Office Kehinde Cloud M.D. 38148 786.50 V06.1 Office Visit 07/05/2011 11:15a Main Office Kehinde Cloud M.D. 68648 784.0 300.00 Office Visit 03/15/2011 11:30a Main Office Kehinde Cloud M.D. 14740 784.0 Office Visit 02/25/2010 12:15p Main Office Kehinde Cloud M.D. 55494 346.00 706.1 Office Visit 01/28/2010 2:30p Main Office Tawanna Garcia M.D., RDmitry 79460 784.0 368.8 Office Visit 11/17/2009 3:45p Main Office Kehinde Cloud M.D. 53381 786.2 Office Visit 11/10/2009 11:15a Main Office Aaliyah Mckee PA-C 17560 786.2 995.3 Office Visit 07/14/2009 9:00a Main Office Kehinde Cloud M.D. 08857 300.00 V25.49 Office Visit 05/05/2009 3:30p Main Office Kehinde Cloud M.D. 46504 719.47 Office Visit 01/22/2009 12:15p Main Office Kehinde Cloud M.D. 26017 786.59 Office Visit 11/30/2008 4:45p Main Office Tawanna Garcia M.D., R.Jennifer 31287 112.1 626.9 Office Visit 08/27/2008 3:15p Main Office Kehinde Cloud M.D. 87041 840.4 840.4 Office Visit 10/03/2007 3:00p Main Office Kehinde Cloud M.D. 06758 300.00 785.1 Office Visit 07/16/2007 1:30p Main Office ARIEL Matta 42128 V72.31 300.00 Office Visit 03/28/2006 9:00a Main Office Kehinde Cloud M.D. 14955 V76.2 599.0 Office Visit 12/11/2005 4:45p Main Office Trey Briones 85476 599.0 Office Visit 02/28/2005 10:30a Main Office Kehinde Cloud M.D. 08091 716.90 Office Visit 02/14/2005 11:30a Main Office Kehinde Cloud M.D. 35303 716.90 Office Visit 11/10/2004 2:30p Main Office Kehinde Cloud M.D. 77424 V72.31 364.60 V25.09 V76.47 Office Visit 09/28/2004 11:15a Main Office Kehinde Cloud M.D. 86772 462 Office Visit 09/08/2004 1:15p Main Office Kehinde Cloud M.D. 84785 719.41 300.00 V25.09 706.1 Office Visit 07/07/2004 4:30p Main Office Kehinde Cloud M.D. 94870 719.41 462 Office Visit 05/26/2004 2:15p Main Office Julita BrionesN.P.C. 03277 463 Office Visit 04/06/2004 3:45p Main Office Kehinde Cloud M.D. 25897 300.00 706.1 Office Visit 03/16/2004 4:00p Main Office Kehinde Cloud M.D. 86136 616.10 706.1 Office Visit 10/21/2003 10:15a Main Office Kehinde Cloud M.D. 63653 616.10 Office Visit 07/23/2003 8:15a Main Office Carolina Vuong F.N.P.C. 79351 300.00 Office Visit 07/16/2003 2:15p Main Office Gilbert Briones.N.P.C. 25319 616.10 Office Visit 06/03/2003 11:30a Main Office Kehinde Cloud M.D. 42162 784.0 Office Visit 04/23/2003 10:15a Main Office Kehinde Cloud M.D. 82927 466.0 Office Visit 03/27/2003 9:30a Main Office Carolina Vuong F.N.P.C. 53240 462 Plan of Care 12/10/2017 - Kehinde Cloud M.D.G25.81 Restless legs syndromeComments:Symptoms consistent with restless legs.Will evaluate for underlying medical causes.We'll discuss medication options pending blood vjelzihD18.9 Anxiety disorder, unspecifiedComments:Doing reasonably well for now.Continue current medicationFollow up:Recheck end of December. 30 min visit.M65.4 Radial styloid tenosynovitis [de Quervain]New Therapy:Physical Therapy-Evaluate And TreatComments:Some de Quervain's tendinitis.Also limited flexion of her thumb.Referral to PT
[2017-12-24 15:17] VITALS: BP 115/67
[2017-12-24] MEDS ORDERED: NS 0.9% 1000 ML* 1,000 ML IV ONE (16:24)
[2017-12-24] MEDS ORDERED: Metoclopramide IV* 5 MG/ML 2 ML VIAL IV SLOW PU ONE (16:24)
[2017-12-24] MEDS ORDERED: Acetaminophen TAB* 325 MG PO ONE (16:25)
[2017-12-24] MEDS ORDERED: diPHENhydraMINE IV* 50 MG/ML 1 ml VIAL (BENADRYL) IV ONE (16:25)
[2017-12-24] MEDS ORDERED: Morphine INJ* 2 MG/ML 1 ML CARPUJECT IV ONE ×2 (16:54→18:13)
--- NOTE | 2017-12-24 19:05 | UC ---
Yudith Basilio Elizabeth, scribed for Madhu Bower MD on 12/24/17 at 1615 . Headache HPI - HPI Summary HPI Summary: This patient is a 42 year old F presenting to [facility] with a chief complaint of sudden-onset left-sided temporal headache since 1 day ago. The patient denies any trauma. The patient notes that she has had similar symptoms before. 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 The patient rates the pain 4/10 in severity but notes that at its worst yesterday it was 8/10. Symptoms aggravated by movement. Symptoms alleviated by nothing. Patient reports photophobia. Patient denies nausea. The patient has hx of headaches and took Indomethacin and Maxalt but notes that it did not alleviate her symptoms. - History Of Current Complaint Chief Complaint: UCHeadache Stated Complaint: HEADACHE Time Seen by Provider: 12/24/17 15:34 Hx Obtained From: Patient Hx Last Menstrual Period: control Onset/Duration: Sudden Onset, Lasting Days - 1 day, Still Present Onset Of Symptoms: Sudden Initially Headache Was: Mild Currently Pain Is: Mild Pain Intensity: 4 Pain Scale Used: 0-10 Numeric Timing: Constant Character: Migraine Location of Headache: Temporal Aggravating Factor(s): Other - movement Allevating Factor(s): Nothing Associated Signs And Symptoms: Positive: Other (Noted In Comments) - photophobia - Allergies/Home Medications Allergies/Adverse Reactions: Allergies Allergy/AdvReac Type Severity Reaction Status Date / Time prednisone Allergy Muscle Ache Verified 12/24/17 15:25 Home Medications: Home Medications Indomethacin CAP* [Indocin CAP*] 25 mg PO Q6HR 12/24/17 [History Confirmed 12/24] Iron 12/24/17 [History] Levonorgestrel-Eth Estrad (NF) [Quasense (NF) 0.15/0.03] 12/24/17 [History] Mirabegron (NF) [Myrbetriq (NF)] 12/24/17 [History Confirmed 12/24/17] Rizatriptan Benzoate [Maxalt Dry Sander] 10 mg PO DAILY PRN 12/24/17 [History Confirmed 12/24/17] PMH/Surg Hx/FS Hx/Imm Hx Other Neurological History: episodic paroxysmyl hemicrania - Surgical History Surgical History: None - Family History Known Family History: Positive: Cardiac Disease - Mother and father, Hypertension - Mother, Diabetes - Mother, Other - Prostate cancer father. Skin cancer father. - Social History Alcohol Use: Weekly Alcohol Amount: 5+ drinks/week Substance Use Type: None Smoking Status (MU): Former Smoker Review of Systems Constitutional: Negative - negative fever Eyes: Photophobia Gastrointestinal: Negative - negative nausea Neurological: Headache All Other Systems Reviewed And Are Negative: Yes Physical Exam - Summary Physical Exam Summary: General: well-appearing, mild pain distress Skin: warm, color reflects adequate perfusion, dry Head: normal Eyes: EOMI, SARAH ENT: normal Neck: supple, nontender Respiratory: CTA, breath sounds present Cardiovascular: RRR Abdomen: soft, nontender Bowel: present Musculoskeletal: normal, strength/ROM intact Neurological: sensory/motor intact, A&O x3 Psychological: affect/mood appropriate Triage Information Reviewed: Yes Vital Signs: Initial Vital Signs Temp 98.3 F 12/24/17 15:11 Pulse 85 12/24/17 15:11 Resp 16 12/24/17 15:11 BP 115/67 12/24/17 15:11 Pulse Ox 99 12/24/17 15:11 Vital Signs Reviewed: Yes Headache Course/Dx - Course Course Of Treatment: PATIENT REPORTS THIS IS A TYPICAL HEADACHE SHE HAS HAD IN THE PAST; DIAGNOSED EPISODIC PAROXYSMAL HEMICRANIA. DISCUSSED CT IMAGING; THE PATIENT DECLINED AT THIS TIME. MICHEL IMPROVED IN CLINIC. F/U PMD/NEUROLOGY; RECHECK SOONER IF WORSE. - Differential Dx/Diagnosis Provider Diagnoses: HEADACHE Discharge - Sign-Out/Discharge Documenting (check all that apply): Discharge/Admit/Transfer - Discharge Plan Condition: Stable Disposition: HOME Discharge Disposition Comment: discharge home Patient Education Materials: Acute Headache (ED) Referrals: Kehinde Cloud MD [Primary Care Provider] - Additional Instructions: FOLLOW UP WITH YOUR PRIMARY CARE DOCTOR AND NEUROLOGIST, DR TAM, IF NOT COMPLETELY IMPROVED. GET RECHECKED FOR ANY WORSENING OF YOUR CONDITION; PAIN, FEVER, WEAKNESS, NUMBNESS, YOU FEEL ILL OR QUESTIONS OR CONCERNS. - Billing Disposition and Condition Condition: STABLE Disposition: Home The documentation as recorded by the Yudith woods Elizabeth accurately reflects the service I personally performed and the decisions made by me, Madhu Bower MD.
== END 2017-12-24 18:45 | disposition home or self-care (01) ==
LOC: UCEAST 14:27
DX: R51 Headache (principal); H53.149 Visual discomfort, unspecified; Z88.8 Allergy status to other drugs, medicaments and biological substances; Z87.891 Personal history of nicotine dependence
CPT/HCPCS: 96361; 96374; 96375; 99212; A9270-GY; G0463; J1200; J2270; J2765

== ENCOUNTER 2017-12-25 18:04 | Emergency (ER) | payer OTHER ==
[2017-12-25] MEDS ORDERED: NS 0.9% 1000 ML* 2,000 ML IV ONE (19:22)
[2017-12-25] MEDS ORDERED: PROCHLORPERAZINE INJ 5 MG/ML 2 ML VIAL IV PRN (19:22)
[2017-12-25] MEDS ORDERED: diPHENhydraMINE IV* 50 MG/ML 1 ml VIAL (BENADRYL) IV ONE (19:22)
--- NOTE | 2017-12-25 19:22 | ED ---
Headache - HPI Summary HPI Summary: This patient is a 42 year old F presenting to ED with a chief complaint of a MICHEL since about 2 days ago. The patient was seen in [facility] yesterday and treated for L -sided migraine. The CC is described as in a different spot than yesterday ( frontal and not L-sided) and worsened during work today. Treatment prior to arrival was indomethacin at 1600. The patient rates the pain 10/10 in severity. Symptoms aggravated by nothing. Symptoms alleviated by nothing. Patient reports fever, N/V, and neck pain. Patient denies vision changes. The patient sees Dr. Lee for her HAs. The patient has bad episodes every few years that last about a week. - History Of Current Complaint Chief Complaint: EDHeadache Stated Complaint: MIGRAINE Time Seen by Provider: 12/25/17 18:17 Hx Obtained From: Patient Hx Last Menstrual Period: control Onset/Duration: Sudden Onset, Started days ago, Still Present, Worse Since Timing: Intermittent, Lasting:, Hours - started pain earlier today during work and took indomethacin at 1600, Days - started 2 days ago and was dx yesterday in [facility] for a migraine Location of Headache: Frontal, Other: - 1st episode was on the L side, currently is only in the front Aggravating Factor: Nothing Allevating Factors: Nothing Associated Signs And Symptoms: Other (Noted In Comments) - Patient reports fever , N/V, and neck pain. Patient denies vision changes. - Allergies/Home Medications Allergies/Adverse Reactions: Allergies Allergy/AdvReac Type Severity Reaction Status Date / Time prednisone AdvReac Muscle Ache Verified 12/25/17 18:09 Home Medications: Home Medications Escitalopram (NF) [Lexapro 20 mg (NF)] 20 mg PO DAILY 12/25/17 [History Confirmed 12/25/17] Ferrous Sulfate [Iron] 325 mg PO DAILY 12/25/17 [History Confirmed 12/25/17] Levonorgestrel-Eth Estrad (NF) [Quasense (NF)] 1 tab PO DAILY 12/25/17 [History Confirmed 12/25/17] Mirabegron (NF) [Myrbetriq (NF)] 50 mg PO DAILY 12/25/17 [History Confirmed 04/04] clonazePAM TAB(*) [KlonoPIN TAB(*)] 0.5 mg PO QID PRN 12/25/17 [History Confirmed 12/25/17] PMH/Surg Hx/FS Hx/Imm Hx Endocrine/Hematology History: Denies: Hx Diabetes, Hx Thyroid Disease Cardiovascular History: Denies: Hx Hypercholesterolemia, Hx Hypertension, Hx Pacemaker/ICD, Hx Peripheral Vascular Disease Respiratory History: Denies: Other Respiratory Problems/Disorders Musculoskeletal History: Denies: Hx Arthritis, Hx Osteoporosis Sensory History: Denies: Hx Cataracts, Hx Contacts or Glasses, Hx Glaucoma, Hx Hearing Aid Opthamlomology History: Denies: Hx Cataracts, Hx Contacts or Glasses, Hx Glaucoma Neurological History: Denies: Hx Headaches, Hx Seizures, Hx Transient Ischemic Attacks (TIA) Psychiatric History: Reports: Hx Panic Disorder Denies: Hx Anxiety, Hx Depression Infectious Disease History: No Infectious Disease History: Denies: Traveled Outside the [place] in Last 30 Days - Family History Known Family History: Positive: Cardiac Disease - Mother and father, Hypertension - Mother, Diabetes - Mother, Other - Prostate cancer father. Skin cancer father. - Social History Alcohol Use: Weekly Alcohol Amount: 5+ drinks/week Substance Use Type: Reports: None Hx Tobacco Use: No Smoking Status (MU): Former Smoker Review of Systems Positive: Fever Positive: Other - denies vision changes Positive: Other - neck pain Positive: Vomiting, Nausea Positive: Headache All Other Systems Reviewed And Are Negative: Yes Physical Exam - Summary Physical Exam Summary: Appearance: Well-appearing, Well-nourished, lying in bed comfortably Skin: Warm, dry, no obvious rash Eyes: sclera anicteric, no conjunctival pallor ENT: mucous membranes moist, pharynx appears normal Neck: Supple, nontender Respiratory: Clear to auscultation, no signs of respiratory distress Cardiovascular: Normal S1, S2. No murmurs. Normal distal pulses in tibial and radial bilaterally. Abdomen: Soft, nontender, normal active bowel sounds present Musculoskeletal: Normal, Strength/ROM Intact Neurological: A&Ox3, awake and alert, mentation is normal, speech is fluent and appropriate Psychiatric: affect is normal, does not appear anxious or depressed Triage Information Reviewed: Yes Vital Signs On Initial Exam: Initial Vitals Temp Pulse Resp BP Pulse Ox 98.3 F 79 20 139/89 99 12/25/17 18:05 12/25/17 18:05 12/25/17 18:05 12/25/17 18:05 12/25/17 18:05 Vital Signs Reviewed: Yes Diagnostics - Vital Signs Vital Signs Temp Pulse Resp BP Pulse Ox 12/25/17 18:05 98.3 F 79 20 139/89 99 - Laboratory Lab Statement: Any lab studies that have been ordered have been reviewed, and results considered in the medical decision making process. Re-Evaluation - Re-Evaluation First Eval Re-Evaluation Time: 20:45 Comment: The patient feels better. Headache Course/Dx - Diagnoses Provider Diagnoses: Headache Discharge - Sign-Out/Discharge Documenting (check all that apply): Patient Departure - Discharge Plan Condition: Stable Disposition: HOME Prescriptions: Prochlorperazine SUPP* [Compazine Supp*] 25 mg .SEE ORDER Q6HR PRN #6 supp PRN Reason: Nausea/Vomiting SUMAtriptan TAB* [Imitrex TAB*] 50 mg PO SEE INSTRUCTIONS PRN #6 tab PRN Reason: Headache Patient Education Materials: Acute Headache (ED) Referrals: Kehinde Cloud MD [Primary Care Provider] - 2 Days Additional Instructions: RETURN TO ED FOR ANY CHANGING OR WORSENING SYMPTOMS. - Billing Disposition and Condition Condition: STABLE Disposition: Home
[2017-12-25] MEDS ORDERED: PROCHLORPERAZINE INJ 5 MG/ML 2 ML VIAL ONE (19:28)
[2017-12-25] MEDS ORDERED: Ketorolac INJ* 30 MG/ML 1 ML VIAL IV PUSH ONE (20:55)
--- NOTE | 2017-12-25 23:13 | ED ---
Progress - Progress Note Progress Note: Pt was signed out by Dr. Bang, pending dispo, awaiting further observation. Course/Dx - Course Course Of Treatment: Pt was signed out by Dr. Bang, pending dispo, awaiting further observation. Upn re-evaluation, the pt's headache has improved and she will be D/C to home. Pt will be D/C with Dx of headache. She understands and agrees. - Diagnoses Provider Diagnoses: Headache Discharge - Sign-Out/Discharge Documenting (check all that apply): Patient Departure - Discharge, Receiving Sign-Out Receiving patient FROM: Rodriguez Bang - Discharge Plan Condition: Stable Disposition: HOME Prescriptions: Prochlorperazine SUPP* [Compazine Supp*] 25 mg .SEE ORDER Q6HR PRN #6 supp PRN Reason: Nausea/Vomiting SUMAtriptan TAB* [Imitrex TAB*] 50 mg PO SEE INSTRUCTIONS PRN #6 tab PRN Reason: Headache Patient Education Materials: Acute Headache (ED) Referrals: Kehinde Cloud MD [Primary Care Provider] - 2 Days Additional Instructions: RETURN TO ED FOR ANY CHANGING OR WORSENING SYMPTOMS.
[2017-12-25 23:33] VITALS: BP 102/74
== END 2017-12-25 23:32 | disposition home or self-care (01) ==
LOC: ED 18:04
DX: R51 Headache (principal); Z87.891 Personal history of nicotine dependence; Z88.8 Allergy status to other drugs, medicaments and biological substances
CPT/HCPCS: 96361; 96365; 96366; 96375; 99284; J0780; J1200; J1885

== ENCOUNTER 2018-08-04 17:14 | Emergency (ER) | payer OTHER ==
--- NOTE | 2018-08-04 17:36 | ED ---
HPI Chest Pain - HPI Summary HPI Summary: 43 year old F presenting to [facility] accompanied by Sabas with a chief complaint of intermittent mid-sternal chest pain, described as heavy and pressure, that does not radiate, lasting 1 minute for the last few days, worse since walking her dog up a slight hill this afternoon. The patient rates the pain 0/10 in severity while in the ED. Symptoms aggravated by exertion. Symptoms alleviated by nothing. She additionally complains of headache, which she has treated with Imitrex, for the last 2-3 weeks. Last dose last week was not associated with chest pain. Patient denies shortness of breath, cough, fever. She denies dizziness. She denies nausea, vomiting, abdominal pain. She denies bilateral calf pain and swelling. This is the first time she has felt this chest discomfort. Patient has hx high cholesterol, usually in 240s, but does not take medication. Patient takes escitalopram, buspirone, Myrbetriq. She takes clonazepam when needed for sleep. She takes iron and B12 supplements for anemia. Patient takes continuous control and does not get her period. Vital signs while in room: HR 80 bpm, BP 124/69. 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 - Hx Last Menstrual Period: control and does not get her menses Onset/Duration: Started Days Ago, Atraumatic, Still Present Timing: Intermittent, Lasting Minutes - 1 Initial Severity: Mild Current Severity: None Pain Intensity: 0 Pain Scale Used: 0-10 Numeric Chest Pain Location: Mid Sternal Chest Pain Radiates: No Character: Heaviness, Pressure/Squeezing Aggravating Factor(s): Exertion Alleviating Factor(s): Nothing Associated Signs and Symptoms: Positive: Negative - shortness of breath, cough, fever, dizziness, nausea, vomiting, abdominal pain, bilateral calf pain and swelling, Headaches - Risk Factors Pulmonary Embolism Risk Factors: Oral Contraceptives - Allergy/Home Medications Allergies/Adverse Reactions: Allergies Allergy/AdvReac Type Severity Reaction Status Date / Time prednisone AdvReac Muscle Ache Verified 08/04/18 17:21 PMH/Surg Hx/FS Hx/Imm Hx Previously Healthy: No Endocrine/Hematology History: Reports: Hx Anemia Denies: Hx Diabetes, Hx Thyroid Disease Cardiovascular History: Reports: Hx Hypercholesterolemia Denies: Hx Hypertension, Hx Pacemaker/ICD, Hx Peripheral Vascular Disease Respiratory History: Denies: Other Respiratory Problems/Disorders History: Denies: Hx Renal Disease Musculoskeletal History: Denies: Hx Arthritis, Hx Osteoporosis Sensory History: Reports: Hx Contacts or Glasses Denies: Hx Cataracts, Hx Glaucoma, Hx Hearing Aid Opthamlomology History: Reports: Hx Contacts or Glasses Denies: Hx Cataracts, Hx Glaucoma Neurological History: Denies: Hx Headaches, Hx Seizures, Hx Transient Ischemic Attacks (TIA) Psychiatric History: Reports: Hx Anxiety, Hx Depression - Surgical History Surgery Procedure, Year, and Place: DENIES surgeries Infectious Disease History: No Infectious Disease History: Denies: Traveled Outside the [place] in Last 30 Days - Family History Known Family History: Positive: Cardiac Disease - Mother and father (CABGx3 in 70s), grandmother, Hypertension - Mother, Diabetes - Mother, Other - Prostate cancer father. Skin cancer father. Mom has high cholesterol - Social History Lives: With Family Alcohol Use: Daily Alcohol Amount: 1-2 glasses of wine/day Hx Substance Use: No Substance Use Type: Reports: None Hx Tobacco Use: Yes Smoking Status (MU): Former Smoker Review of Systems Negative: Fever Positive: Chest Pain - intermittent mid-sternal, described as heavy and pressure , that does not radiate, lasting 1 minute Negative: Shortness Of Breath, Cough Negative: Abdominal Pain, Vomiting, Nausea Positive: no symptoms reported Musculoskeletal: Negative - bilateral calf pain and swelling Negative: Edema Neurological: Negative - Dizziness Positive: Headache Psychological: Normal All Other Systems Reviewed And Are Negative: Yes Physical Exam - Summary Physical Exam Summary: Appearance: Ill-appearing, no pain distress, well-nourished Skin: Warm, color reflects adequate perfusion, dry Head: Normal Head/Face inspection, atraumatic Eyes: Conjunctiva clear ENT: Normal inspection Neck: Supple, no nodes, no JVD Respiratory: Lungs clear, normal breath sounds, no respiratory distress Cardio: RRR, No murmur, pulses normal, brisk capillary refill Abdomen: Soft, nontender Bowel sounds: Present Musculoskeletal: Strength Intact/ROM intact, no calf tenderness, no edema. Psychological: Normal Neuro: Alert, muscle tone normal, no focal deficit Triage Information Reviewed: Yes Vital Signs On Initial Exam: Initial Vitals Temp Pulse Resp BP Pulse Ox 98.8 F 80 16 124/69 95 02/17/19 17:17 08/04/18 17:17 08/04/18 17:17 08/04/18 17:17 08/04/18 17:17 Vital Signs Reviewed: Yes Diagnostics - Vital Signs Vital Signs Temp Pulse Resp BP Pulse Ox 08/04/18 17:17 98.8 F 80 16 124/69 95 - Laboratory Result Diagrams: 08/04/18 18:19 08/04/18 18:19 Lab Statement: Any lab studies that have been ordered have been reviewed, and results considered in the medical decision making process. - Radiology CXR Radiology Interpretation Completed By: ED Physician Summary of Radiographic Findings: No acute disease. Pending official report. - EKG 1721 Cardiac Rate: NL - 70 BPM EKG Rhythm: Sinus Rhythm ST Segment: Non-Specific Ectopy: None EKG Comparison: No Significant Change - Compared with 10/04/17 Summary of EKG Findings: Nml AV/IV CT, nml QTc, and nml axis. No acute changes. Re-Evaluation - Re-Evaluation First Eval Re-Evaluation Time: 22:05 Change: Improved Comment: BP 113/71, 79 BPM. No chest pain. Agrees with close follow up. Chest Pain Course/Dx - Course Course Of Treatment: Reviewed nurses note. Patient medications reviewed this visit. Allergies noted. High blood pressure noted. Patient's bloodwork was unremarkable. Both troponin tests were 0 and d dimer was less than 200. Patient' s EKG showed SR with no acute changes. CXR showed no acute disease, preliminary reading. In ED course, patient was given IV fluids. She had no further CP in the ED. Patient was instructed to follow up with her primary care provider this week and discuss oral contraceptives and migraines, and Imitrex treatment and chest pain, and especially exertional component to her chest pain. However with pain resolved, and two 3 hr troponins and low risk (HEART score =1), pt may be DC'd for close follow up. She understands to return to ED for new or worsening symptoms. Patient and her are agreeable to discharge. - Diagnoses Provider Diagnoses: Exertional chest pain Discharge - Sign-Out/Discharge Documenting (check all that apply): Patient Departure - Discharge Patient Received Moderate/Deep Sedation with Procedure: No - Discharge Plan Condition: Stable Disposition: HOME Patient Education Materials: Chest Pain (ED) Referrals: Kehinde Cloud MD [Primary Care Provider] - 2 Days Additional Instructions: You had two troponin levels that were zero. And your d dimer which can be an indicator of possible pulmonary embolus was less than 200 which is also normal. We did not diagnose a serious cause for your chest pain tonight. Have definite follow up with Dr. Roldan this week to determine if he wants further evaluation. Return to the emergency department for new or worsening symptoms. - Billing Disposition and Condition Condition: STABLE Disposition: Home - Attestation Statements Document Initiated by Doc: Yes Documenting Scribe: Aby Carmen Provider For Whom Doc is Documenting (Include Credential): Sheila Busch MD Scribe Attestation: Aby Basilio, scribed for Sheila Busch MD on 08/07/18 at 2131. Scribe Documentation Reviewed: Yes Provider Attestation: The documentation as recorded by the Aby woods accurately reflects the service I personally performed and the decisions made by me, Sheila Busch MD Status of Scribe Document: Viewed
[2018-08-04] MEDS ORDERED: NS 0.9% 1000 ML** 1,000 ML IV ONE (17:50)
[2018-08-04 18:24] LABS: ABS Basophils 0.1 10^3/ul (0-0.2); ABS Eosinophils 0.4 10^3/ul (0-0.6); ABS Lymphocytes 1.6 10^3/ul (1.0-4.8); ABS Monocytes 0.4 10^3/ul (0-0.8); ABS Neutrophils 3.5 10^3/ul (1.5-7.7); ABS Nucleated RBC 0 10^3/ul; Hematocrit 39 % (35-47); Hemoglobin 13.2 g/dl (12.0-16.0); Lymphocyte % 26.6 %; Mean Corpuscular HGB Conc 34 g/dl (31-36); Mean Corpuscular Hemoglobin 32 pg (27-31); Mean Corpuscular Volume 93 fL (80-97); Mean Platelet Volume 6.6 fL (7.4-10.4); Nucleated Red Blood Cells % 0.1; Platelet Count 290 10^3/ul (150-450); Red Blood Count 4.15 10^6/ul (4.00-5.40); Red Cell Distribution Width 12 % (10.5-15); White Blood Count 5.9 10^3/ul (3.5-10.8)
[2018-08-04 18:40] LABS: Activated Partial Thrombo Time 22.9 seconds (26.0-36.3); INR 0.83 (0.77-1.02)
[2018-08-04 18:41] LABS: ALT 18 U/L (7-52); AST 19 U/L (13-39); Albumin/Globulin Ratio 1.4 (1-3); Alkaline Phosphatase 20 U/L (34-104); Anion Gap 7 mmol/L (2-11); BUN/Creatinine Ratio 18.9 (8-20); Blood Urea Nitrogen 14 mg/dL (6-24); CO2 Carbon Dioxide 25 mmol/L (22-32); Calcium 9.3 mg/dL (8.6-10.3); Chloride 106 mmol/L (101-111); Creatine Kinase 98 U/L (10-223); EGFR African American 103.6 (>60); EGFR Non-African American 85.7 (>60); Globulin 2.8 g/dL (2-4); Glucose 96 mg/dL (70-100); Magnesium 2.1 mg/dL (1.9-2.7); Potassium 4.1 mmol/L (3.5-5.0); Sodium 138 mmol/L (135-145); Total Protein 6.8 g/dL (6.4-8.9)
[2018-08-04 18:46] LABS: CKMB ng/mL 0.7 ng/mL (0.6-6.3)
[2018-08-04 18:49] LABS: HCG Pregnancy < 0.60 mIU/mL
[2018-08-04 19:44] LABS: T4, Total 6.55 g/dL (6.09-12.23)
[2018-08-04 19:48] LABS: TSH (Thyroid Stimulating Horm) 2.98 mcIU/mL (0.34-5.60)
[2018-08-04 22:16] VITALS: BP 113/71
== END 2018-08-04 22:16 | disposition home or self-care (01) ==
LOC: ED 17:14
DX: R07.89 Other chest pain (principal); Z88.8 Allergy status to other drugs, medicaments and biological substances; Z82.49 Family history of ischemic heart disease and other diseases of the circulatory system; Z83.3 Family history of diabetes mellitus; Z80.8 Family history of malignant neoplasm of other organs or systems; Z87.891 Personal history of nicotine dependence
CPT/HCPCS: 36415; 71045; 80053; 82550; 82553; 83605; 83735; 83880; 84436; 84443; 84484; 84702; 85025; 85379; 85610; 85730; 93005; 96360; 99283